=== PATIENT | male | born 1955 | race Caucasian/White ===

== ENCOUNTER 2019-08-29 15:29 | Emergency (ER) | payer MEDICARE, SELFPAY ==
--- NOTE | ~2019-08-29 | XR_ITS ---
EXAMINATION: XR knee LT 3V DATE: 08/29/2019 16:30 INDICATION: Left knee pain TECHNIQUE: Three views of the left knee were obtained. COMPARISON: None. FINDINGS: Alignment is normal. No fracture or osteochondral lesion. There is mild tricompartmental os teoarthritis characterized by tiny marginal osteophytes. No joint effusion/synovitis. Soft tissues a re unremarkable. IMPRESSION: 1. No acute osseous abnormality. Reviewed, dictated and finalized at location A. [facility]
[2019-08-29 15:31] VITALS: BP 140/86; PULSE 87; RESP 16; TEMP 36.8; O2SAT 96
--- NOTE | 2019-08-29 17:25 | ED.LOWEXIN ---
HPI - Extremity Injury (Lower) General Chief Complaint: Extremity Injury, Lower Stated Complaint: left leg injury Time Seen by Provider: 08/29/19 15:36 Source: patient Mode of arrival: ambulatory Limitations: no limitations History of Present Illness HPI Narrative: Patient is a 64-year-old male who presents with left knee pain noting that his knee felt a pop today and with resultant pain at the patellar region worse with weightbearing and activity notes that he also a week ago and injured the leg patient presents with crutches noting aching pain has an outside orthopedist has not seen them has not taken anything for his symptoms and is otherwise resting comfortably in the room in no distress upon arrival Related Data Home Medications Medication Instructions Recorded Confirmed fluticasone propionate 50 2 spray NASAL DAILY 07/29/19 mcg/actuation nasal spray,suspension omeprazole 40 mg capsule,delayed 40 mg PO DAILY 07/29/19 release tamsulosin 0.4 mg capsule 0.4 mg PO DAILY 07/29/19 Allergies Allergy/AdvReac Type Severity Reaction Status Date / Time lisinopril Allergy Unknown cough Verified 08/29/19 16:06 Penicillins Allergy Unknown unkown Verified 08/29/19 16:06 Review of Systems Review of Systems: Narrative: CONSTITUTIONAL: Denies fever, chills, or sweats. SKIN: Positive for bruising and swelling MUSCULOSKELETAL: Positive for left knee pain NEUROLOGIC: Denies numbness, tingling PMFSH Surgical History Surgical History (Updated 08/29/19 @ 17:27 by Buck Mattson PA-C) History of orthopedic surgery Social History Social History Smoking status: Never smoker Alcohol intake: never Gender identity (if verbalized by the patient): Male Exam Narrative: Exam Narrative: GENERAL: Well-appearing, well-nourished, and in no acute distress. HEAD: Normocephalic, atraumatic. EYES: PERRLA and EOMI. ENT: Nares clear, no rhinorrhea or epistaxis. Mucous membranes moist. EXTREMITIES: Normal range of motion. No edema. No deformity or tenderness of the knee SKIN: Warm, dry, no rash. NEURO: No focal deficits. Alert and oriented x3. Neurovascularly intact. Capillary refill less than 2 seconds PSYCH: Normal mood and affect. Course Course Emergency Course: Patient in the room in no distress aware of case findings treatment plan and diagnosis agreeing to follow-up as directed Vital Signs Vital signs: Vital Signs Temperature 98.2 F 08/29/19 15:31 Pulse Rate 87 08/29/19 15:31 Respiratory Rate 16 08/29/19 15:31 Blood Pressure 140/86 08/29/19 15:31 Pulse Oximetry 96 08/29/19 15:31 Temperature 98.2 F 08/29/19 15:31 Pulse Rate 87 08/29/19 15:31 Respiratory Rate 16 08/29/19 15:31 Blood Pressure 140/86 08/29/19 15:31 Pulse Oximetry 96 08/29/19 15:31 MDM - Extremity Injury (Lower) MDM Narrative Medical decision making narrative: Patients injury or pain is consistent with musculoskeletal etiology. No signs of neurological or vascular compromise on exam. Compartments and tisues are soft without signs of compartment syndrome. Pain is felt appropriate for further evaluation on an outpatient basis. Imaging Data Radiologist's impression: ITS Impressions Knee X-Ray 08/29/19 16:38 IMPRESSION: 1. No acute osseous abnormality. Discharge Plan Discharge Clinical Impression: Acute pain of left knee Patient Disposition: Home, Self-Care Condition: Stable Instructions: Antibiotic Form, Arthralgia (ED) Additional Instructions: Wear brace and use crutches. No weight on the affected leg until able to bear weight without pain. Ice and elevate extremity. Pain medication as needed and directed. Follow up with your doctor for further care in the next 7 days. Return if symptoms worsen or concerns. Prescriptions: No Action omeprazole 40 mg capsule,delayed release(DR/EC) 40 mg PO DAILY RF: 0 t
== END 2019-08-29 17:49 | disposition home or self-care (01) ==
PROVIDERS: Emergency Provider Emergency Medicine; PCP Family Medicine
DX: M25.562 Pain in left knee (principal)
CPT/HCPCS: 73562; 99283

== ENCOUNTER 2020-12-12 11:40 | Outpatient (CLI) | payer MEDICARE, SELFPAY ==
--- NOTE | ~2020-12-12 | XR_ITS ---
XR chest 2V DATE: 12/12/2020 12:05 INDICATION: Cough TECHNIQUE: PA and lateral views COMPARISON: 09/28/2018 2 view chest FINDINGS: Normal heart size. Aortic calcification. No hilar or mediastinal enlargement. No pulmonary infiltrate or consolidation, pleural effusion or pulmonary vascular congestion or pneumo thorax. Diffuse osteopenia. Mild dextroscoliosis and degenerative spurring of the thoracic spine. IMPRESSION: No active cardiopulmonary disease Aortic atherosclerosis Reviewed, dictated and finalized at location A.
== END 2020-12-12 11:41 | disposition home or self-care (01) ==
LOC: ANHIMG 11:48
PROVIDERS: PCP Family Medicine; Visit Provider Family Medicine
DX: R05 Cough (principal); I70.0 Atherosclerosis of aorta; M85.88 Other specified disorders of bone density and structure, other site
CPT/HCPCS: 71046

== ENCOUNTER → 2020-12-23 01:15 | Outpatient (CLI) | payer MEDICARE, SELFPAY ==
[2020-12-23 17:56] LABS: SARS-CoV-2 RNA PCR Negative
== END ==
PROVIDERS: PCP Family Medicine; Visit Provider Internal Medicine Gastroenterology
DX: Z01.812 Encounter for preprocedural laboratory examination (principal); Z20.822 Contact with and (suspected) exposure to COVID-19
CPT/HCPCS: C9803; U0003; U0005

== ENCOUNTER 2020-12-26 02:32 | Day surgery (SDC) | payer MEDICARE, SELFPAY ==
[2020-12-19 14:00] VITALS: BMI 32.1
--- NOTE | 2020-12-26 07:59 | P.PNAN_ITS ---
Anes - Initial Pre Proc Eval Procedure: Operation Date: 12/26/20 11:15 Proposed Procedures p Esophagogastroduodenoscopy - Jesus Jeter MD Date/Time: 12/26/20 07:59 Surgeon: Jesus Jeter MD Pre Op Diagnosis: dysphagia Patient Data Age: 65 Gender: M Height: 1.7 m Weight: 93 kg Allergies Allergy/AdvReac Type Severity Reaction Status Date / Time lisinopril Allergy Unknown cough Verified 12/26/20 09:49 Penicillins Allergy Unknown unkown Verified 12/26/20 09:49 Home Medications Medication Instructions Recorded Confirmed Type omega-3 fatty acids 1,000 mg 1,000 mg PO DAILY 02/18/20 12/26/20 History capsule ascorbic acid (vitamin C) 500 mg 1,000 mg PO DAILY cap 08/02/20 12/26/20 History capsule vitamin B complex 1 tablet PO DAILY 08/02/20 12/26/20 History omeprazole 40 mg capsule,delayed 40 mg PO DAILY #90 cap 08/07/20 12/26/20 Rx release atorvastatin 10 mg tablet See Rx Instructions .ROUTE 08/15/20 12/26/20 Rx .COMPLEX #90 tablet meloxicam 15 mg tablet 15 mg PO DAILY #90 tablet 08/16/20 12/26/20 Rx fluticasone propionate 50 See Rx Instructions .ROUTE 10/10/20 12/26/20 Rx mcg/actuation nasal .COMPLEX #16 ml spray,suspension nystatin-triamcinolone 100,000 1 applic TOPICAL TID PRN #60 g 11/08/20 12/26/20 Rx unit/g-0.1 % topical cream tamsulosin 0.4 mg capsule 0.4 mg PO DAILY 11/30/20 12/26/20 History Patient hx anesthesia problems: none Family hx anesthesia problems: none PMFSH Past Medical History Medical History (Updated 12/26/20 @ 10:50 by Jesus Jeter MD) Arthritis BMI 33.0-33.9,adult Cervical radiculopathy Esophageal stricture Essential (primary) hypertension Mixed hyperlipidemia Obesity (BMI 30-39.9) Osteoarthritis of both knees Surgical History Surgical History History of orthopedic surgery right knee arthroscopy Family History Family History Father Hypertension, Onset Age: 76 Family history of throat cancer, Onset Age: 76 Mother Family history of lung cancer, Onset Age: 62 Family history of malignant neoplasm of breast in first degree relative, Onset Age: 62 Social History Social History Smoking status: Never smoker Alcohol intake: never Substance use: never Substance use type: does not use Living arrangements: with family Gender identity (if verbalized by the patient): Male Spiritual care concerns: No Anes - Eval Final PreProcedure Day of Procedure 12/26/20 07:59 Patient weight: obese Heart: regular rate and rhythm Lungs: clear to auscultation and normal air movement Airway: Mallampati scale class II Neurological: alert and oriented Last oral intake: >/= 8 hours ASA classification: III Emergent: no Anesthetic plan: proceed Anesthesia type and monitoring: general GIVS Informed Consent: The patient's anesthetic plan and its attendant risks and benefits were discussed with the patient/family/POA. Questions were solicited and answers provided to the satisfaction of the patient/family/POA.
[2020-12-26 09:51] VITALS: BP 113/91; PULSE 79; RESP 18; TEMP 36.6; O2SAT 95; BMI 32.2
[2020-12-26] MEDS: LACTATED RINGERS 1,000 ML 150 ML IV CONT (10:12)
--- NOTE | 2020-12-26 10:48 | WPDGICN ---
Assessment and Plan Assessment and plan (1) Dysphagia: Code(s): R13.10 - Dysphagia, unspecified Status: Acute Assessment and Plan: Patient with difficulty swallowing over the last couple years suspicious for recurrent esophageal stricturing. Plan is for EGD to assess more thoroughly. Dilatation may be required. (2) Esophageal stricture: Code(s): K22.2 - Esophageal obstruction Status: Acute Assessment and Plan: Patient has a prior history of esophageal stricture on the basis of acid reflux. Patient continues to take omeprazole 40 mg p.o. daily for acid reflux. This will be assessed at time of endoscopy. GI Consult Note Consult date/time: 12/26/20 10:48 HPI: Jose Martin Valderrama is a 65 year old male Presents for EGD. Patient has had difficulty swallowing for many years. He notes of food hang in the mid substernal portion of the chest. He states that it occurs more often with solid foods than liquids. Occasionally will notice substernal discomfort. He has been maintained on therapy for acid reflux for some time period current medications include omeprazole 40 mg p.o. daily. Patient denies any bleeding. He denies any weight loss. Family history is noncontributory. Because of ongoing difficulty swallowing he presents today for EGD. Review of Systems Review of Systems: All systems reviewed & are unremarkable except as noted in HPI and below PMFSH Past Medical History Medical History (Updated 12/26/20 @ 10:50 by Jesus Jeter MD) Arthritis BMI 33.0-33.9,adult Cervical radiculopathy Esophageal stricture Essential (primary) hypertension Mixed hyperlipidemia Obesity (BMI 30-39.9) Osteoarthritis of both knees Surgical History Surgical History History of orthopedic surgery right knee arthroscopy Family History Family History Father Hypertension, Onset Age: 76 Family history of throat cancer, Onset Age: 76 Mother Family history of lung cancer, Onset Age: 62 Family history of malignant neoplasm of breast in first degree relative, Onset Age: 62 Social History Social History Smoking status: Never smoker Alcohol intake: never Substance use: never Substance use type: does not use Living arrangements: with family Gender identity (if verbalized by the patient): Male Spiritual care concerns: No Meds Home Medications and Allergies Home Medications Medication Instructions Recorded Confirmed Type omega-3 fatty acids 1,000 mg 1,000 mg PO DAILY 02/18/20 12/26/20 History capsule ascorbic acid (vitamin C) 500 mg 1,000 mg PO DAILY cap 08/02/20 12/26/20 History capsule vitamin B complex 1 tablet PO DAILY 08/02/20 12/26/20 History omeprazole 40 mg capsule,delayed 40 mg PO DAILY #90 cap 08/07/20 12/26/20 Rx release atorvastatin 10 mg tablet See Rx Instructions .ROUTE 08/15/20 12/26/20 Rx .COMPLEX #90 tablet meloxicam 15 mg tablet 15 mg PO DAILY #90 tablet 08/16/20 12/26/20 Rx fluticasone propionate 50 See Rx Instructions .ROUTE 10/10/20 12/26/20 Rx mcg/actuation nasal .COMPLEX #16 ml spray,suspension nystatin-triamcinolone 100,000 1 applic TOPICAL TID PRN #60 g 11/08/20 12/26/20 Rx unit/g-0.1 % topical cream tamsulosin 0.4 mg capsule 0.4 mg PO DAILY 11/30/20 12/26/20 History Allergies Allergy/AdvReac Type Severity Reaction Status Date / Time lisinopril Allergy Unknown cough Verified 12/26/20 09:49 Penicillins Allergy Unknown unkown Verified 12/26/20 09:49 Vital Signs Vital Signs - 24 hr 12/26/20 09:51 Temperature 97.9 F Pulse Rate 79 Respiratory Rate 18 Blood Pressure 113/91 H Pulse Oximetry 95 Exam Narrative: Exam Narrative: Physical exam reveals patient be alert. Vital signs stable. HEENT exam is unremarkable.
[2020-12-26 11:33] VITALS: BP 139/86; PULSE 68; RESP 18; O2SAT 96
[2020-12-26 11:43] VITALS: BP 129/84; PULSE 66; RESP 20; O2SAT 97
[2020-12-26 11:53] VITALS: BP 136/88; PULSE 66; RESP 20; O2SAT 98
== END 2020-12-26 11:58 | disposition home or self-care (01) ==
PROVIDERS: PCP Family Medicine; Visit Provider Internal Medicine Gastroenterology
PROC: 0DJ08ZZ Inspection of Upper Intestinal Tract, Via Natural or Artificial Opening Endoscopic (ICD-10-PCS; CPT 43235; principal; 2020-12-26 11:15)
DX: K22.2 Esophageal obstruction (principal); I10 Essential (primary) hypertension; E78.2 Mixed hyperlipidemia; M17.0 Bilateral primary osteoarthritis of knee; M54.12 Radiculopathy, cervical region; E66.9 Obesity, unspecified; Z68.32 Body mass index [BMI] 32.0-32.9, adult
CPT/HCPCS: 43450; C9803; J2704; J7120; U0003; U0005

== ENCOUNTER 2021-12-07 12:14 | Outpatient (CLI) | payer MEDICARE, SELFPAY ==
--- NOTE | ~2021-12-07 | XR_ITS ---
EXAMINATION: XR elbow LT min 3V DATE: 12/07/2021 12:43 INDICATION: Left elbow pain TECHNIQUE: Anteroposterior, two oblique and lateral views of the left elbow were obtained. COMPARISON: None. FINDINGS: Alignment is normal. No fracture or joint effusion. Mild osteoarthritis at the left elbow with mild n onuniform joint space narrowing at the radiocapitellar articulation. Enthesophytes and/or enthesopath ic ossicles at the medial and lateral humeral epicondyles and at the olecranon. Soft tissues are unre markable. IMPRESSION: 1. 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 Reviewed, dictated and finalized at location B.
--- NOTE | ~2021-12-07 | XR_ITS ---
XR_CERV2-3V_CR DATE: 12/07/2021 12:43 INDICATION: Neck pain TECHNIQUE: Standing AP, lateral, open-mouth and swimmer views COMPARISON: None FINDINGS: C1 and C2 are normally aligned and the odontoid process is intact. There is moderate degenerative disc disease and prominent posterior spurring and minimal anterolisthe sis at C4-5. There is mild anterolisthesis and mild degenerative disc disease at C5-6. There is severe degenerative disc disease at C6-7. There is uncovertebral joint spurring at C3-4, C4-5, C5-C6 and C6-7, most prominent on the left at C3 -4 and C4-5. No fracture or dislocation or locked facet or prevertebral soft tissue swelling. There is mild levoscoliosis of the upper thoracic spine. IMPRESSION: Cervical spondylosis Reviewed, dictated and finalized at Location A. Reviewed, dictated and finalized at location A. IMPRESSION: Cervical spondylosis
== END 2021-12-07 12:15 ==
PROVIDERS: PCP Physician Assistant; Visit Provider Physician Assistant
DX: M54.2 Cervicalgia (principal); M25.522 Pain in left elbow; M47.812 Spondylosis without myelopathy or radiculopathy, cervical region; M19.022 Primary osteoarthritis, left elbow
CPT/HCPCS: 72040; 73080

== ENCOUNTER 2022-03-05 07:55 | Outpatient (CLI) | payer MEDICARE, SELFPAY ==
[2022-03-05 08:12] LABS: Basophils Absolute Auto 0.06 K/mm3 (0.00-0.10); Basophils Percent Auto 0.8 % (0.0-1.0); Eosinophils Absolute Auto 0.31 K/mm3 (0.02-0.50); Eosinophils Percent Auto 4.3 % (1.0-6.0); Hematocrit 42.3 % (37.0-46.0); Hemoglobin 14.4 g/dL (12.4-15.3); Immature Granulocyte Absolute 0.02 K/mm3 (0.00-0.00); Immature Granulocyte Percent A 0.3 % (0.0-0.0); Lymphocytes Absolute Auto 1.66 K/mm3 (1.10-4.50); Lymphocytes Percent Auto 23.1 % (18.0-42.0); Mean Corpuscular Hemoglobin 29.4 pg (27.0-31.0); Mean Corpuscular Volume 86.5 fL (78.0-102.0); Monocytes Absolute Auto 0.73 K/mm3 (0.10-0.90); Monocytes Percent Auto 10.2 % (2.0-11.0); Neutrophils Absolute Auto 4.4 K/mm3 (1.7-7.2); Neutrophils Percent Auto 61.3 % (50.0-70.0); Platelet Count Result 206 K/mm3 (150-420); Red Blood Count 4.89 M/mm3 (4.70-6.10); Red Cell Distribution Width 12.8 % (11.6-14.4); White Blood Count 7.2 K/mm3 (4.8-10.8)
[2022-03-05 08:41] LABS: Alanine Aminotransferase 29 U/L (16-63); Albumin Level 4.1 g/dL (3.4-5.0); Alkaline Phosphatase 86 U/L (46-116); Anion Gap 6 mmol/L (8-16); Aspartate Amino Transferase 24 U/L (15-37); Bilirubin,Total 0.3 mg/dL (0.00-1.00); Blood Urea Nitrogen 28 mg/dL (7-18); Calcium 9.2 mg/dL (8.5-10.1); Carbon Dioxide 29 mmol/L (21-32); Chloride 102 mmol/L (98-108); Cholesterol 127 mg/dL (0-200); Estimated Glomerular Filt Rate > 60; Glucose 101 mg/dL (70-99); HDL Direct 30 mg/dL (40-60); LDL Cholesterol Calculated 64 mg/dL (<130); Osmolality Calculated 289 mOsm/kg (285-295); Potassium 4.2 mmol/L (3.5-5.1); Prostate Specific Antigen 0.8 ng/mL (< OR = 4.0); Sodium 137 mmol/L (136-145); Thyroid Stimulating Hormone 1.65 uIU/mL (0.36-3.74); Total Protein 7.7 g/dL (6.4-8.2); Triglycerides 167 mg/dL (0-150)
== END 2022-03-05 07:56 | disposition home or self-care (01) ==
LOC: CHSLAB 07:59
PROVIDERS: PCP Family Medicine; Visit Provider Family Medicine
DX: E66.9 Obesity, unspecified (principal); E78.2 Mixed hyperlipidemia; E78.5 Hyperlipidemia, unspecified; I10 Essential (primary) hypertension; Z12.5 Encounter for screening for malignant neoplasm of prostate
CPT/HCPCS: 36415; 80053; 80061; 84153; 84443; 85025; 85027; G0103

== ENCOUNTER 2022-03-29 10:27 | Emergency (ER) | payer MEDICARE, SELFPAY ==
--- NOTE | ~2022-03-29 | XR_ITS ---
EXAMINATION: XR chest 2V DATE: 03/29/2022 11:26 INDICATION: Intermittent left lateral rib pain and chills TECHNIQUE: PA and lateral views of the chest were obtained. COMPARISON: Chest radiograph dated 12/12/2020 FINDINGS: The lungs remain clear with no focal airspace opacities, pulmonary edema, pleural effusion or pneumot horax. The cardiomediastinal silhouette is normal. Moderate thoracic spondylosis. IMPRESSION: 1. No acute cardiopulmonary disease. Reviewed, dictated and finalized at location A.
[2022-03-29 10:41] VITALS: BP 158/88; PULSE 73; RESP 20; TEMP 36.4; O2SAT 93
--- NOTE | 2022-03-29 10:47 | ED.GENADULT ---
HPI - General Adult General Chief complaint: Unspecified Stated complaint: pain in left side/chills Time Seen by Provider: 03/29/22 10:46 Source: patient and RN notes reviewed Mode of arrival: ambulatory Limitations: no limitations History of Present Illness HPI narrative: Patient states he has had this left rib pain for couple of years on and off He has been to his doctor about this but nothing ever found. This morning when he woke up at 5:00 a.m. he had pain 7/10 in his left rib area and the mid axillary line. He said he felt some chills and that made him concerned as this was something new so he came in to be seen. He denies any chest pain, shortness of breath, actual fever, nausea vomiting. Onset (ago): hour(s) (5) Location: chest (left ribs axiallary line) Radiation: non-radiation Severity: moderate Quality: stabbing and dull Pain Consistency: intermittent and now resolved Associated symptoms: fever/chills Related Data Home Medications Medication Instructions Recorded Confirmed omega-3 fatty acids 1,000 mg 1,000 mg PO DAILY 02/18/20 03/20/22 capsule (Fish Oil Concentrate) ascorbic acid (vitamin C) 500 mg 1,000 mg PO DAILY 08/02/20 03/20/22 capsule vitamin B complex 1 tablet PO DAILY 08/02/20 03/20/22 cholecalciferol (vitamin D3) 50 50 mcg PO DAILY 03/20/22 03/20/22 mcg (2,000 unit) capsule multivitamin-ferrous 1 tablet PO DAILY 03/20/22 03/20/22 fumarate-folic acid 18 mg-400 mcg tablet ([facility]) atorvastatin 10 mg tablet 10 mg PO DAILY 03/29/22 03/29/22 meloxicam 15 mg tablet 15 mg PO DAILY 03/29/22 03/29/22 omeprazole 40 mg capsule,delayed 40 mg PO DAILY 03/29/22 03/29/22 release tamsulosin 0.4 mg capsule 0.4 mg PO DAILY 03/29/22 03/29/22 Allergies Allergy/AdvReac Type Severity Reaction Status Date / Time lisinopril Allergy Unknown cough Verified 03/29/22 10:49 Penicillins Allergy Unknown unkown Verified 03/29/22 10:49 Review of Systems Review of Systems: All systems reviewed & are unremarkable except as noted in HPI and below PMFSH Past Medical History Medical History Arthritis BMI 33.0-33.9,adult BPH (benign prostatic hyperplasia) Cervical radiculopathy Diverticulitis Esophageal stricture Essential (primary) hypertension Gastro-esophageal reflux disease without esophagitis Mixed hyperlipidemia Obesity (BMI 30-39.9) Osteoarthritis of both knees Splenic mass Surgical History Surgical History History of orthopedic surgery right knee arthroscopy Family History Family History Father Hypertension, Onset Age: 76 Family history of throat cancer, Onset Age: 76 Mother Family history of lung cancer, Onset Age: 62 Family history of malignant neoplasm of breast in first degree relative, Onset Age: 62 Social History Social History Smoking status: Never smoker Alcohol intake: never Substance use: never Substance use type: does not use Gender identity (if verbalized by the patient): Male Spiritual care concerns: No Exam Const: General: cooperative, healthy appearing, comfortable, no acute distress, well developed, alert and awake Orientation/consciousness: patient oriented x3 Limitations: no limitations HENMT: Head: normal to inspection Ears: hearing grossly normal bilaterally and external ears normal General nose exam: Normal external nose present Eyes: General: appearance normal, both eyes and all related structures Eyelids: eyelids normal Cornea: corneas normal Pupils: Equal, round and reactive pupils present EOM: EOMs intact bilaterally Neck: Neck: normal visual inspection, full ROM and supple Chest: Chest palpation & inspection: tenderness rib left mid-axillary line involving the 8th rib, involving the 9th rib and involving t
[2022-03-29 11:05] LABS: Basophils Absolute Auto 0.06 K/mm3 (0.00-0.10); Basophils Percent Auto 0.6 % (0.0-1.0); Eosinophils Absolute Auto 0.32 K/mm3 (0.02-0.50); Eosinophils Percent Auto 3.1 % (1.0-6.0); Hematocrit 43.3 % (37.0-46.0); Immature Granulocyte Absolute 0.04 K/mm3 (0.00-0.00); Immature Granulocyte Percent A 0.4 % (0.0-0.0); Lymphocytes Absolute Auto 2.17 K/mm3 (1.10-4.50); Lymphocytes Percent Auto 20.8 % (18.0-42.0); Mean Corpuscular HGB Conc 34.6 g/dL (32.0-36.0); Mean Corpuscular Hemoglobin 29.5 pg (27.0-31.0); Mean Corpuscular Volume 85.2 fL (78.0-102.0); Monocytes Absolute Auto 0.94 K/mm3 (0.10-0.90); Neutrophils Absolute Auto 6.9 K/mm3 (1.7-7.2); Neutrophils Percent Auto 66.1 % (50.0-70.0); Platelet Count Result 227 K/mm3 (150-420); Red Blood Count 5.08 M/mm3 (4.70-6.10); Red Cell Distribution Width 12.6 % (11.6-14.4); White Blood Count 10.4 K/mm3 (4.8-10.8)
[2022-03-29 11:21] LABS: Alanine Aminotransferase 43 U/L (16-63); Albumin Level 4.2 g/dL (3.4-5.0); Alkaline Phosphatase 85 U/L (46-116); Amylase 60 U/L (25-115); Anion Gap 9 mmol/L (8-16); Aspartate Amino Transferase 26 U/L (15-37); Bilirubin,Total 0.6 mg/dL (0.00-1.00); Blood Urea Nitrogen 25 mg/dL (7-18); CRP < 0.2 mg/dL (0.0-0.9); Calcium 9.2 mg/dL (8.5-10.1); Carbon Dioxide 25 mmol/L (21-32); Chloride 102 mmol/L (98-108); Estimated CRCL calculation 65 ml/min; Estimated Glomerular Filt Rate > 60; Glucose 90 mg/dL (70-99); Lipase 106 U/L (73-393); Magnesium 2.1 mg/dL (1.8-2.4); Osmolality Calculated 286 mOsm/kg (285-295); Potassium 3.8 mmol/L (3.5-5.1); Sodium 136 mmol/L (136-145); Total Protein 7.9 g/dL (6.4-8.2)
[2022-03-29 11:52] VITALS: BP 148/66; PULSE 66; RESP 20; TEMP 36.6; O2SAT 94
== END 2022-03-29 11:57 | disposition home or self-care (01) ==
PROVIDERS: Emergency Provider Emergency Medicine; PCP Family Medicine
DX: R07.81 Pleurodynia (principal); K21.9 Gastro-esophageal reflux disease without esophagitis; E78.2 Mixed hyperlipidemia
CPT/HCPCS: 36415; 71046; 80053; 82150; 83690; 83735; 85025; 86140; 99283

== ENCOUNTER → 2022-05-08 13:40 | Outpatient (CLI) | payer MEDICARE, SELFPAY ==
--- NOTE | ~2022-05-08 | XR_ITS ---
XR knee LT 3V 05/08/2022 13:53 Indication: Left knee pain Procedure: 3 views left knee Comparison: 08/29/2019 Findings: There is anatomic alignment. No fracture, subluxation or dislocation. There is mild osteoar thritis. No joint effusion. No foreign bodies. Impression: 1: Mild osteoarthritis of the left knee. Reviewed, dictated and finalized at location B. Impression: 1: Mild osteoarthritis of the left knee.
== END ==
PROVIDERS: PCP Nurse Practitioner; Visit Provider Nurse Practitioner
DX: M25.562 Pain in left knee (principal); M17.12 Unilateral primary osteoarthritis, left knee
CPT/HCPCS: 73562

== ENCOUNTER 2022-07-18 08:11 | Outpatient (CLI) | payer MEDICARE, SELFPAY ==
[2022-07-18 09:07] LABS: Alanine Aminotransferase 51 U/L (16-63); Albumin Level 4.1 g/dL (3.4-5.0); Alkaline Phosphatase 88 U/L (46-116); Anion Gap 7 mmol/L (8-16); Aspartate Amino Transferase 23 U/L (15-37); Bilirubin,Total 0.4 mg/dL (0.00-1.00); Blood Urea Nitrogen 24 mg/dL (7-18); Carbon Dioxide 30 mmol/L (21-32); Chloride 101 mmol/L (98-108); Cholesterol 125 mg/dL (0-200); Estimated Glomerular Filt Rate > 60; Glucose 93 mg/dL (70-99); HDL Direct 33 mg/dL (40-60); LDL Cholesterol Calculated 72 mg/dL (<130); Osmolality Calculated 290 mOsm/kg (285-295); Potassium 4.4 mmol/L (3.5-5.1); Sodium 138 mmol/L (136-145); Thyroid Stimulating Hormone 1.42 uIU/mL (0.36-3.74); Total Protein 7.6 g/dL (6.4-8.2); Triglycerides 102 mg/dL (0-150)
[2022-07-22 19:54] LABS: Vitamin D 25 Hydroxy 43 ng/mL (30-100)
== END 2022-07-18 08:12 | disposition home or self-care (01) ==
LOC: CHSLAB 08:14
PROVIDERS: PCP Family Medicine; Visit Provider Nurse Practitioner
DX: E55.9 Vitamin D deficiency, unspecified (principal); G47.00 Insomnia, unspecified; E78.2 Mixed hyperlipidemia
CPT/HCPCS: 36415; 80053; 80061; 82306; 84443

== ENCOUNTER 2022-10-31 02:22 | Emergency (ER) | payer MEDICARE, SELFPAY ==
[2022-10-31 02:24] VITALS: BP 171/94; PULSE 70; RESP 18; TEMP 36.4; O2SAT 94
--- NOTE | 2022-10-31 02:32 | ED.EYEPROB ---
HPI - Eye Problem General Chief complaint: Eye Problems Stated complaint: Eye Source: patient Mode of arrival: ambulatory Limitations: no limitations History of Present Illness HPI Narrative: 67-year-old male a history of hypertension, dyslipidemia, GERD, osteoarthritis, cervical radiculopathy, esophageal stricture, diverticulosis presents to the ER with a 1 hour history of -- right eye pain with irritation and watering. He was cleaning out his locker and felt that something could have fallen into his eye. Vision is 20 x 30 in both eyes. No other complaints. MD chief complaint: eye pain, eye redness and foreign body Onset (ago): hour(s) ( Symptoms started 1 hour ago) Onset description: sudden Duration: constant Location: right eye Eye Symptoms: burning, redness, pain and foreign body sensation Place: home Mechanism: none Severity: mild If Pain, Quality: aching Treatments Prior to Arrival: none Related Data Home Medications Medication Instructions Recorded Confirmed omega-3 fatty acids 1,000 mg 1,000 mg PO DAILY 02/18/20 10/31/22 capsule (Fish Oil Concentrate) ascorbic acid (vitamin C) 500 mg 1,000 mg PO DAILY 08/02/20 10/31/22 capsule vitamin B complex 1 tablet PO DAILY 08/02/20 10/31/22 cholecalciferol (vitamin D3) 50 50 mcg PO DAILY 03/20/22 10/31/22 mcg (2,000 unit) capsule multivitamin-ferrous 1 tablet PO DAILY 03/20/22 10/31/22 fumarate-folic acid 18 mg-400 mcg tablet (Sentry) Allergies Allergy/AdvReac Type Severity Reaction Status Date / Time lisinopril Allergy Unknown cough Verified 10/31/22 02:30 Penicillins Allergy Unknown unkown Verified 10/31/22 02:30 Review of Systems Review of Systems: All systems reviewed & are unremarkable except as noted in HPI and below Constitutional: Constitutional: Reports as per HPI and Reports no additional constitutional complaints Eyes: Eyes: Reports as per HPI and Reports no additional eye complaints [facility] Past Medical History Medical History Arthritis BMI 33.0-33.9,adult BPH (benign prostatic hyperplasia) Cervical radiculopathy Diverticulitis Esophageal stricture Essential (primary) hypertension Gastro-esophageal reflux disease without esophagitis Mixed hyperlipidemia Obesity (BMI 30-39.9) Osteoarthritis of both knees Splenic mass Surgical History Surgical History History of orthopedic surgery right knee arthroscopy Family History Family History Father Hypertension, Onset Age: 76 Family history of throat cancer, Onset Age: 76 Mother Family history of lung cancer, Onset Age: 62 Family history of malignant neoplasm of breast in first degree relative, Onset Age: 62 Social History Social History Smoking status: Never smoker Alcohol intake: never Substance use: never Substance use type: does not use Lack of Transportation: No Lack of Food: Never True Current Housing: I Have Housing Concerned About Future Housing: No Difficulty Paying Gas/Electric Bills: No Difficulty Paying for Meds: No Currently Unemployed: No Education: High School Diploma/GED Difficulty w/ Childcare or Family Care: No Living arrangements: with family Occupation/Education: retired Gender identity (if verbalized by the patient): Male Spiritual care concerns: No Exam Const: General: no acute distress Orientation/consciousness: patient oriented x3 Limitations: no limitations HENMT: Head: normal to inspection Ears: external ears normal Face/Nose/Sinus: Normal external nose present Face and sinus: normal facial exam Mouth: Yes Normal oral and palatal mucosa present Throat: posterior oropharynx normal Eyes: Conjunctivae: conjunctivae normal ( conjunctival erythema on the right side
[2022-10-31 02:54] VITALS: BP 164/90; PULSE 71; RESP 16; O2SAT 95
== END 2022-10-31 02:56 | disposition home or self-care (01) ==
PROVIDERS: Emergency Provider Internal Medicine Critical Care Medicine; PCP Family Medicine
DX: H10.9 Unspecified conjunctivitis (principal); I10 Essential (primary) hypertension; E78.2 Mixed hyperlipidemia
CPT/HCPCS: 99283

== ENCOUNTER 2022-12-18 08:30 | Outpatient (CLI) | payer MEDICARE, SELFPAY ==
[2022-12-18 08:43] LABS: Hematocrit 42.3 % (37.0-46.0); Hemoglobin 14.6 g/dL (12.4-15.3); Mean Corpuscular HGB Conc 34.5 g/dL (32.0-36.0); Mean Corpuscular Hemoglobin 30.1 pg (27.0-31.0); Mean Corpuscular Volume 87.2 fL (78.0-102.0); Mean Platelet Volume 10.1 fl (8.7-11.0); Platelet Count Result 188 K/mm3 (150-420); Red Blood Count 4.85 M/mm3 (4.70-6.10); Red Cell Distribution Width 12.2 % (11.6-14.4); White Blood Count 9.1 K/mm3 (4.8-10.8)
[2022-12-18 09:25] LABS: Alanine Aminotransferase 36 U/L (16-63); Albumin Level 3.9 g/dL (3.4-5.0); Alkaline Phosphatase 112 U/L (46-116); Anion Gap 6 mmol/L (8-16); Aspartate Amino Transferase 25 U/L (15-37); Bilirubin,Total 0.3 mg/dL (0.00-1.00); Blood Urea Nitrogen 33 mg/dL (7-18); Calcium 9.1 mg/dL (8.5-10.1); Carbon Dioxide 30 mmol/L (21-32); Chloride 104 mmol/L (98-108); Cholesterol 119 mg/dL (0-200); Estimated Glomerular Filt Rate > 60; Glucose 97 mg/dL (70-99); HDL Direct 35 mg/dL (40-60); LDL Cholesterol Calculated 61 mg/dL (<130); Osmolality Calculated 297 mOsm/kg (285-295); Potassium 4.1 mmol/L (3.5-5.1); Sodium 140 mmol/L (136-145); Thyroid Stimulating Hormone 1.52 uIU/mL (0.36-3.74); Total Protein 7.2 g/dL (6.4-8.2); Triglycerides 114 mg/dL (0-150)
[2022-12-22 20:52] LABS: Vitamin D 25 Hydroxy 48 ng/mL (30-100)
== END 2022-12-18 08:31 | disposition home or self-care (01) ==
LOC: CHSLAB 08:32
PROVIDERS: PCP Nurse Practitioner; Visit Provider Nurse Practitioner
DX: G47.00 Insomnia, unspecified (principal); E78.5 Hyperlipidemia, unspecified; I10 Essential (primary) hypertension; E55.9 Vitamin D deficiency, unspecified
CPT/HCPCS: 36415; 80053; 80061; 82306; 84443; 85027

== ENCOUNTER 2023-01-04 15:00 | Emergency (ER) | payer MEDICARE, SELFPAY ==
[2023-01-04 15:07] VITALS: BP 119/68; PULSE 72; RESP 16; TEMP 36.2; O2SAT 98
--- NOTE | 2023-01-04 15:36 | ED.GENADULT ---
HPI - General Adult General Chief complaint: Skin/Abscess/Foreign Body Stated complaint: Rash Source: patient Mode of arrival: ambulatory Limitations: no limitations History of Present Illness HPI narrative: Patient presents for evaluation of pruritic rash to extremities x4 and torso. He states symptoms started earlier this week after working outdoors. He thinks he may have been exposed to poison ashley. No new lotions, soaps, detergents or topical products. No history of exposure to poison ashley in the past to his knowledge. He attempted to apply topical Benadryl without much improvement thereafter. No difficulty breathing or swallowing. Related Data Home Medications Medication Instructions Recorded Confirmed omega-3 fatty acids 1,000 mg 1,000 mg PO DAILY 02/18/20 01/04/23 capsule (Fish Oil Concentrate) ascorbic acid (vitamin C) 500 mg 1,000 mg PO DAILY 08/02/20 01/04/23 capsule vitamin B complex 1 tablet PO DAILY 08/02/20 01/04/23 cholecalciferol (vitamin D3) 50 50 mcg PO DAILY 03/20/22 01/04/23 mcg (2,000 unit) capsule multivitamin-ferrous 1 tablet PO DAILY 03/20/22 01/04/23 fumarate-folic acid 18 mg-400 mcg tablet (Sentry) Allergies Allergy/AdvReac Type Severity Reaction Status Date / Time lisinopril Allergy Unknown cough Verified 01/04/23 15:11 Penicillins Allergy Unknown unkown Verified 01/04/23 15:11 Review of Systems Review of Systems: CONSTITUTIONAL: Denies fever, chills, or sweats. EYES: Denies visual changes, redness, or discharge. ENT: Denies rhinorrhea, congestion, sore throat, or otalgia. CARDIOVASCULAR: Denies chest pain, palpitations, or edema. RESPIRATORY: Denies cough or dyspnea. GASTROINTESTINAL: Denies abdominal pain, nausea, vomiting, or diarrhea. GENITOURINARY: Denies dysuria or hematuria. SKIN: Reports pruritic rash to extremities x 4 and torso. MUSCULOSKELETAL: Denies back pain, joint pain, or myalgia. NEUROLOGIC: Denies headache, numbness, dizziness, or weakness. PSYCHIATRIC: Denies anxiety or depression. [facility] Past Medical History Medical History Arthritis BMI 33.0-33.9,adult BPH (benign prostatic hyperplasia) Cervical radiculopathy Diverticulitis Esophageal stricture Essential (primary) hypertension Gastro-esophageal reflux disease without esophagitis Mixed hyperlipidemia Obesity (BMI 30-39.9) Osteoarthritis of both knees Splenic mass Surgical History Surgical History History of orthopedic surgery right knee arthroscopy Family History Family History Father Hypertension, Onset Age: 76 Family history of throat cancer, Onset Age: 76 Mother Family history of lung cancer, Onset Age: 62 Family history of malignant neoplasm of breast in first degree relative, Onset Age: 62 Social History Social History Smoking status: Never smoker Alcohol intake: never Substance use: never Substance use type: does not use Lack of Transportation: No Lack of Food: Never True Current Housing: I Have Housing Concerned About Future Housing: No Difficulty Paying Gas/Electric Bills: No Difficulty Paying for Meds: No Currently Unemployed: No Education: High School Diploma/GED Difficulty w/ Childcare or Family Care: No Living arrangements: with family Occupation/Education: retired Gender identity (if verbalized by the patient): Male Spiritual care concerns: No Exam Narrative: GENERAL: Well-appearing, well-nourished, and in no acute distress. HEAD: Normocephalic, atraumatic. EYES: PERRLA and EOMI. ENT: Nares clear, no rhinorrhea or epistaxis. Mucous membranes moist. Oropharynx without tonsillar hypertrophy exudate or other lesions. Bilateral TMs pearly sethi nonbulging NECK: Suppl
== END 2023-01-04 15:40 | disposition home or self-care (01) ==
PROVIDERS: Emergency Provider Nurse Practitioner
DX: L23.7 Allergic contact dermatitis due to plants, except food (principal); N40.0 Benign prostatic hyperplasia without lower urinary tract symptoms; I10 Essential (primary) hypertension; K21.9 Gastro-esophageal reflux disease without esophagitis; E78.2 Mixed hyperlipidemia; M17.0 Bilateral primary osteoarthritis of knee
CPT/HCPCS: 99213; G0463

== ENCOUNTER 2023-05-06 07:55 | Outpatient (CLI) | payer MEDICARE, SELFPAY ==
[2023-05-06 08:56] LABS: Alanine Aminotransferase 36 U/L (16-63); Albumin Level 4.1 g/dL (3.4-5.0); Alkaline Phosphatase 91 U/L (46-116); Anion Gap 11 mmol/L (8-16); Aspartate Amino Transferase 16 U/L (15-37); Bilirubin,Total 0.5 mg/dL (0.00-1.00); Blood Urea Nitrogen 21 mg/dL (7-18); Calcium 9.8 mg/dL (8.5-10.1); Carbon Dioxide 28 mmol/L (21-32); Chloride 104 mmol/L (98-108); Cholesterol 121 mg/dL (0-200); Estimated Glomerular Filt Rate > 60; Glucose 95 mg/dL (70-99); HDL Direct 36 mg/dL (40-60); LDL Cholesterol Calculated 71 mg/dL (<130); Osmolality Calculated 299 mOsm/kg (285-295); Potassium 4.3 mmol/L (3.5-5.1); Sodium 143 mmol/L (136-145); Total Protein 7.2 g/dL (6.4-8.2); Triglycerides 68 mg/dL (0-150)
== END 2023-05-06 07:56 | disposition home or self-care (01) ==
LOC: CHSLAB 07:57
PROVIDERS: PCP Family Medicine; Visit Provider Nurse Practitioner
DX: I10 Essential (primary) hypertension (principal); E78.2 Mixed hyperlipidemia; E16.2 Hypoglycemia, unspecified
CPT/HCPCS: 36415; 80053; 80061

== ENCOUNTER 2023-05-22 09:57 | Outpatient (CLI) | payer MEDICARE, SELFPAY ==
--- NOTE | ~2023-05-22 | US_ITS ---
EXAMINATION: US carotid duplex BI DATE: 05/22/2023 11:48 INDICATION: Dizziness and giddiness. Cerebral atherosclerosis. TECHNIQUE: Grayscale, color Doppler, and pulsed Doppler images of the cervical carotid arteries were obtained. The degree of vessel stenosis is placed in one of the following categories: normal, <50%, 5 0-69%, >=70% but less than near-occlusion, near-occlusion, or total occlusion. Note that percent sten osis relative to normal distal artery lumen diameter is indirectly measured from velocity measurement s as described by Wilber, et al. Radiology 2003; 229:340-346. COMPARISON: None. FINDINGS: RIGHT: The right common carotid artery (CCA) peak systolic velocity (PSV) is 54 cm/s. The right internal car otid artery (ICA) PSV is 82 cm/s. The right ICA end-diastolic velocity (EDV) is 29 cm/s. The right IC A/CCA PSV ratio is 1.5. Grayscale and color Doppler images yield an estimate of <50% diameter reducti on from plaque in the ICA. The external carotid artery (ECA) PSV is 71 cm/s. There is antegrade flow in the right vertebral artery. LEFT: The left CCA PSV is 65 cm/s. The left ICA PSV is 65 cm/s. The left ICA EDV is 20 cm/s. The left ICA/C CA PSV ratio is 1.0. Grayscale and color Doppler images yield an estimate of <50% diameter reduction from plaque in the ICA. The ECA PSV is 90 cm/s. There is antegrade flow in the left vertebral artery. IMPRESSION: 1. <50% stenosis in the right internal carotid artery. 2. <50% stenosis in the left internal carotid artery. Reviewed, dictated and finalized at location A. [employer]
== END 2023-05-22 09:58 | disposition home or self-care (01) ==
PROVIDERS: PCP Family Medicine; Visit Provider Nurse Practitioner
DX: R42 Dizziness and giddiness (principal); I65.23 Occlusion and stenosis of bilateral carotid arteries
CPT/HCPCS: 93880

== ENCOUNTER 2023-05-27 09:55 | Outpatient (CLI) | payer MEDICARE, SELFPAY ==
--- NOTE | 2023-05-27 10:00 | EST_ITS ---
Patient Info Name: Jose Martin Valderrama Age: 67 years : 1955 Gender: Male Ht: 67 in Wt: 187 lbs BSA: 2.03 m2 HR: 70 bpm BP: 136 / 88 mmHg Heart Rhythm: Sinus Rhythm Exam Date: 05/27/2023 10:13 AM Exam Location: Echo Lab Patient Status: Outpatient Admit Date: 05/27/2023 Staff Ordering Physician: Madina Perez Attending Provider: Madina Perez Exercise Technologist: Sigrid Johnson CT Exercise Physician: Darrell Barragan DO Exam Type: CA stress test treadmill Study Info Indications R07.89 - Other chest pain A treadmill exercise stress test was performed. Summary 1. 1. Negative Arsenio exercise stress test for ischemic ST changes by ECG criteria. 2. 2. Good functional capacity, achieving 8.6 METs of workload. 3. 3. Transient episode of atrial tachycardia at peak exercise. 4. 4. Appropriate HR response to exercise. 5. 5. Appropriate HR recovery at 1 minute post exercise. 6. 6. No imaging with stress testing. 7. 7. Patient informed of the above results. Protocol: Arsenio Stress ECG Details Stage: REST Duration (min): 1 min : 11 sec Speed (mph): 0.0 Grade (%): 0 HR (bpm): 70 SBP (mmHg): 136 DBP (mmHg): 88 METS: --- Stage: REST Duration (min): 14 min : 25 sec Speed (mph): 0.0 Grade (%): 0 HR (bpm): 80 SBP (mmHg): 136 DBP (mmHg): 88 METS: --- Stage: STAGE 1 Duration (min): 1 min : 0 sec Speed (mph): 1.7 Grade (%): 10 HR (bpm): 81 SBP (mmHg): 136 DBP (mmHg): 88 METS: --- Stage: STAGE 1 Duration (min): 2 min : 0 sec Speed (mph): 1.7 Grade (%): 10 HR (bpm): 85 SBP (mmHg): 136 DBP (mmHg): 88 METS: --- Stage: STAGE 1 Duration (min): 3 min : 0 sec Speed (mph): 1.7 Grade (%): 10 HR (bpm): 88 SBP (mmHg): 162 DBP (mmHg): 60 METS: --- Stage: STAGE 2 Duration (min): 1 min : 0 sec Speed (mph): 2.5 Grade (%): 12 HR (bpm): 91 SBP (mmHg): 162 DBP (mmHg): 60 METS: --- Stage: STAGE 2 Duration (min): 2 min : 0 sec Speed (mph): 2.5 Grade (%): 12 HR (bpm): 94 SBP (mmHg): 173 DBP (mmHg): 70 METS: --- Stage: STAGE 2 Duration (min): 3 min : 0 sec Speed (mph): 2.5 Grade (%): 12 HR (bpm): 98 SBP (mmHg): 173 DBP (mmHg): 70 METS: --- Stage: STAGE 3 Duration (min): 0 min : 56 sec Speed (mph): 3.4 Grade (%): 14 HR (bpm): 130 SBP (mmHg): 177 DBP (mmHg): 72 METS: --- Stage: RECOVERY Duration (min): 0 min : 3 sec Speed (mph): 1.5 Grade (%): 0 HR (bpm): 122 SBP (mmHg): 177 DBP (mmHg): 72 METS: --- Stage: RECOVERY Duration (min): 1 min : 3 sec Speed (mph): 0.0 Grade (%): 0 HR (bpm): 92 SBP (mmHg): 177 DBP (mmHg): 72 METS: --- Stage: RECOVERY Duration (min): 2 min : 3 sec Speed (mph): 0.0 Grade (%): 0 HR (bpm): 84 SBP (mmHg): 177 DBP (mmHg): 72 METS: --- Stage: RECOVERY Duration (min): 3 min : 3 sec Speed (mph): 0.0 Grade (%): 0
== END 2023-05-27 09:56 | disposition home or self-care (01) ==
LOC: ANHCARD 09:56
PROVIDERS: Visit Provider Nurse Practitioner
DX: I47.19 Other supraventricular tachycardia (principal)
CPT/HCPCS: 93017

== ENCOUNTER 2023-05-28 10:23 | Outpatient (CLI) | payer MEDICARE, SELFPAY ==
--- NOTE | ~2023-05-28 | US_ITS ---
EXAMINATION: US soft tissue UE LT DATE: 05/28/2023 10:36 INDICATION: Left palm mass. TECHNIQUE: Multiple grayscale and Doppler ultrasound images of the left hand were obtained. COMPARISON: None FINDINGS: In the patient's area of concern in the left hand, there is a 15 x 6 x 11 mm mixed hypoecho ic and anechoic mass. The mass abuts a tendon. IMPRESSION: 1. 15 mm mass in the hand in the patient's area of concern, most likely a multiloculated ganglion cys t. Reviewed, dictated and finalized at location A. NT EXECUTIVE IMPRESSION: 1. 15 mm mass in the hand in the patient's area of concern, most likely a multi loculated ganglion cyst.
== END 2023-05-28 10:24 ==
PROVIDERS: PCP Family Medicine; Visit Provider Plastic Surgery
DX: R22.32 Localized swelling, mass and lump, left upper limb (principal)
CPT/HCPCS: 76882

== ENCOUNTER 2023-06-26 08:20 | Outpatient (CLI) | payer MEDICARE, SELFPAY ==
[2023-06-26 08:32] LABS: Hematocrit 43.8 % (37.0-46.0); Hemoglobin 14.8 g/dL (12.4-15.3); Mean Corpuscular HGB Conc 33.8 g/dL (32.0-36.0); Mean Corpuscular Hemoglobin 29.2 pg (27.0-31.0); Mean Corpuscular Volume 86.4 fL (78.0-102.0); Mean Platelet Volume 9.6 fl (8.7-11.0); Platelet Count Result 197 K/mm3 (150-420); Red Blood Count 5.07 M/mm3 (4.70-6.10); Red Cell Distribution Width 12.2 % (11.6-14.4); White Blood Count 6.6 K/mm3 (4.8-10.8)
[2023-06-26 09:19] LABS: Alanine Aminotransferase 41 U/L (16-63); Albumin Level 4.2 g/dL (3.4-5.0); Alkaline Phosphatase 72 U/L (46-116); Anion Gap 3 mmol/L (8-16); Aspartate Amino Transferase 20 U/L (15-37); Bilirubin,Total 0.4 mg/dL (0.00-1.00); Blood Urea Nitrogen 21 mg/dL (7-18); Calcium 9.5 mg/dL (8.5-10.1); Carbon Dioxide 34 mmol/L (21-32); Chloride 99 mmol/L (98-108); Cholesterol 126 mg/dL (0-200); Estimated Glomerular Filt Rate > 60; Glucose 100 mg/dL (70-99); HDL Direct 40 mg/dL (40-60); LDL Cholesterol Calculated 77 mg/dL (<130); Osmolality Calculated 285 mOsm/kg (285-295); Potassium 4.2 mmol/L (3.5-5.1); Prostate Specific Antigen 0.9 ng/mL (< OR = 4.0); Sodium 136 mmol/L (136-145); Total Protein 7.3 g/dL (6.4-8.2); Triglycerides 47 mg/dL (0-150)
[2023-06-26 11:04] LABS: Hemoglobin A1C 5.2 % (<5.7)
[2023-06-29 21:48] LABS: Vitamin D 25 Hydroxy 51 ng/mL (30-100)
== END 2023-06-26 08:21 | disposition home or self-care (01) ==
LOC: CHSLAB 08:22
PROVIDERS: PCP Family Medicine; Visit Provider Nurse Practitioner
DX: R73.01 Impaired fasting glucose (principal); E78.2 Mixed hyperlipidemia; E55.9 Vitamin D deficiency, unspecified; Z12.5 Encounter for screening for malignant neoplasm of prostate; K22.2 Esophageal obstruction
CPT/HCPCS: 36415; 80053; 80061; 82306; 83036; 84153; 84443; 85027; G0103

== ENCOUNTER 2023-10-08 11:51 | Outpatient (CLI) | payer MEDICARE, SELFPAY ==
--- NOTE | ~2023-10-08 | XR_ITS ---
EXAM: XR knee RT 3V DATE: 10/08/2023 12:33 HISTORY: M25.561 - Pain in right knee . COMPARISON: 01/27/2018. FINDINGS: Normal mineralization. No fracture or dislocation. No lytic or blastic lesion. Mild medial and lateral joint space narrowing. Mild tricompartmental osteophytosis. Quadriceps enthesopathy. Sca ttered atherosclerotic calcifications. Small joint effusion. No erosion or periosteal change. Soft ti ssues within normal limits. IMPRESSION: Mild tricompartmental right knee osteoarthritis. Reviewed, dictated and finalized at location K.
--- NOTE | ~2023-10-08 | XR_ITS ---
EXAMINATION: XR chest 2V 10/08/2023 12:33 INDICATION: Cough PROCEDURE: 2 view chest COMPARISON Comparison to multiple prior studies sequentially, with oldest reviewed study dated 09/18. FINDINGS: The lungs are clear. The cardiomediastinal silhouette is within normal limits. There are no pleural effusions. There is no pneumothorax suspected. IMPRESSION: 1: NO ACUTE CARDIOPULMONARY DISEASE. Reviewed, dictated and finalized at location B.
== END 2023-10-08 11:52 ==
PROVIDERS: PCP Family Medicine; Visit Provider Nurse Practitioner
DX: M17.11 Unilateral primary osteoarthritis, right knee (principal); R05.9 Cough, unspecified
CPT/HCPCS: 71046; 73562

== ENCOUNTER 2023-10-25 07:42 | Outpatient (CLI) | payer MEDICARE, SELFPAY ==
[2023-10-25 09:48] LABS: Alanine Aminotransferase 38 U/L (16-63); Albumin Level 3.9 g/dL (3.4-5.0); Alkaline Phosphatase 74 U/L (46-116); Anion Gap 7 mmol/L (4-12); Aspartate Amino Transferase 20 U/L (15-37); Bilirubin,Total 0.5 mg/dL (0.00-1.00); Blood Urea Nitrogen 26 mg/dL (7-18); Calcium 9.1 mg/dL (8.5-10.1); Carbon Dioxide 31 mmol/L (21-32); Chloride 105 mmol/L (98-108); Cholesterol 132 mg/dL (0-200); Estimated Glomerular Filt Rate > 60; Glucose 86 mg/dL (70-99); HDL Direct 39 mg/dL (40-60); LDL Cholesterol Calculated 77 mg/dL (<130); Osmolality Calculated 299 mOsm/kg (285-295); Potassium 4.3 mmol/L (3.5-5.1); Sodium 143 mmol/L (136-145); Thyroid Stimulating Hormone 1.44 uIU/mL (0.36-3.74); Total Protein 7.3 g/dL (6.4-8.2); Triglycerides 81 mg/dL (0-150)
[2023-10-26 08:30] LABS: Vitamin D 25 Hydroxy 58 ng/mL (30-100)
== END 2023-10-25 07:43 | disposition home or self-care (01) ==
LOC: CHSLAB 07:44
PROVIDERS: PCP Nurse Practitioner; Visit Provider Nurse Practitioner
DX: G47.00 Insomnia, unspecified (principal); E78.5 Hyperlipidemia, unspecified; E55.9 Vitamin D deficiency, unspecified
CPT/HCPCS: 36415; 80053; 80061; 82306; 84443

== ENCOUNTER 2023-10-29 14:02 | Outpatient (CLI) | payer MEDICARE, SELFPAY ==
--- NOTE | ~2023-10-29 | XR_ITS ---
EXAMINATION: XR thoracic spine 3V DATE: 10/29/2023 14:18 INDICATION: Mid to low back pain. TECHNIQUE: 3 views of thoracic spine were obtained. COMPARISON: Chest 2 views 10/08/2023 FINDINGS: There is 10 degrees levoscoliosis of upper thoracic spine. Vertebral body heights are olga l. There are endplate osteophytes at most levels. There is mildly decreased disc height at multiple l evels. There is multilevel mild facet joint osteoarthritis. IMPRESSION: 1. Mild thoracic spondylosis. 2. Thoracic levoscoliosis. Reviewed, dictated and finalized at location E.
--- NOTE | ~2023-10-29 | XR_ITS ---
EXAMINATION: XR lumbar spine 2-3V DATE: 10/29/2023 14:18 INDICATION: Mid to low back pain. TECHNIQUE: 3 views of lumbar spine were obtained. COMPARISON: CT abdomen and pelvis 10/02/2018 FINDINGS: There is 18 degrees levoscoliosis of lumbar spine. There is 3 mm retrolisthesis of L2 on L3 . Vertebral body heights are normal. There is moderately decreased disc height at L1-L2 and L2-L3 and severely decreased disc height at L3-L4, L4-L5, and L5-S1 L5-S1. There is multilevel severe facet beto int osteoarthritis. IMPRESSION: 1. Severe lumbar spondylosis. 2. Lumbar levoscoliosis. Reviewed, dictated and finalized at location E.
== END 2023-10-29 14:03 ==
PROVIDERS: PCP Family Medicine; Visit Provider Nurse Practitioner
DX: M43.04 Spondylolysis, thoracic region (principal); M41.84 Other forms of scoliosis, thoracic region; M43.06 Spondylolysis, lumbar region; M41.86 Other forms of scoliosis, lumbar region
CPT/HCPCS: 72072; 72100

== ENCOUNTER 2024-02-26 06:36 | Day surgery (SDC) | payer MEDICARE, SELFPAY ==
[2024-02-18 09:32] VITALS: BMI 29.7
--- NOTE | 2024-02-26 07:04 | WPDHPUPDATE1 ---
History and Physical Update Update Date/Time: 02/26/24 07:04 Patient seen and examined in pre-operative holding area. No interval change in medical history or symptoms. Patient recalls previous discussion of benefits and alternatives to procedure. Continues to desire to proceed with left palmar mass excision . Reviewed procedure, post-op expectations and risks including but not limited to bleeding, infection, injury to tendon/nerve/vessel, decreased hand function, stiffness, RSD, no change or worsening of symptoms, recurrence. I discussed the possible use of assistants and their participation in the case. Patient stated understanding and signed the consent form wishing to proceed.
--- NOTE | 2024-02-26 07:04 | W.PM.PROC2 ---
Procedure Note - Detailed Date of Procedure 02/26/24 Pre-op Diagnosis Localized Swelling Mass and Lump Upper Left Limb Post-op Diagnosis Same Procedure Performed left palmar mass excision Surgeon Seven Aparicio MD Manager Distribution janki bowen pa-c Anesthesia MAC Description of Procedure INFORMED CONSENT: The patient was seen and examined and marked in the pre-op area.? The patient signed the consent form. PROCEDURE IN DETAIL:The patient taken back to OR on the stretcher in supine position. Time out performed with anesthesia, surgeon and staff agreeing on patient's name site and surgery to be performed SCDs were placed on the lower extremities and inflated. A tourniquet was placed on {left} upper extremity and antibiotics given IV After anesthesia administered sedation I injected {8}cc 1%lido with epi and 0.5% marcaine plain at the operative site The?{left upper extremity}?was prepped and draped in sterile fashion the??{left upper extremity} was? exsanguinated with Esmarch bandage proximal to the mass and tourniquet inflated to 250mmHg I proceeded with making a Brenda incision over the mass through skin and dermis with a 15 blade scalpel. Littler scissors were used to elevate skin flaps and spread through subcutaneous tissue down to the mass. I made incision to the palmar fascia to enter the deep space of the hand. Here the mass was identified. I proceeded with circumferential dissection around this gelatinous mass excising it from the deep tissue with bipolar cautery and Littler scissors noting the mass was closely approximated to the the common neurovascular bundle which was protected throughout the procedure. The flexor tendon did not appear to be involved. I irrigated with normal saline. Skin was closed with 4-0 chromic. A dressing of xeroform, 4x4, you, and an prince bandage was aookued after the tourniquet was let down noting the hand was warm and well perfused. The patient was then awaken from anesthesia and transferred to the recovery room in stable condition.? Complications - none EBL- 0cc Disposition - home in stable conditions janki bowen pa-c was essential for positioning, retraction, closure and dressing placement [facility] Billing Surgery - Charge Forward: Surgery Billing ([id number] for janki)
[2024-02-26 07:32] VITALS: BP 135/81; PULSE 72; RESP 16; TEMP 37.1; O2SAT 96; BMI 29.9
[2024-02-26] MEDS: LACTATED RINGERS 1,000 ML 30 ML IV CONT (07:45)
--- NOTE | 2024-02-26 08:15 | WPDANESEPPF ---
Anes - Initial Pre Proc Eval Procedure: Operation Date: 02/26/24 08:45 Proposed Procedures p Excision Left Palmar Mass/Ganglion Cyst - Seven Aparicio MD Date/Time: 02/26/24 08:15 Surgeon: Seven Aparicio MD Pre Op Diagnosis: Localized Swelling Mass and Lump Upper Left Limb Patient Data Age: 68 Gender: M Height: 1.7 m Weight: 86.8 kg Last Vital Signs Temp 37.1 C 02/26/24 07:32 Pulse 72 02/26/24 07:32 Resp 16 02/26/24 07:32 BP 135/81 02/26/24 07:32 Pulse Ox 96 02/26/24 07:32 O2 Del Method Room Air 02/26/24 07:32 Allergies Allergy/AdvReac Type Severity Reaction Status Date / Time Penicillins Allergy Unknown unkown Verified 02/26/24 07:21 lisinopril AdvReac Unknown cough Verified 02/26/24 07:21 Home Medications Medication Instructions Recorded Confirmed Type omega-3 fatty acids 1,000 mg 1,000 mg PO DAILY 02/18/20 02/26/24 History capsule (Fish Oil Concentrate) ascorbic acid (vitamin C) 500 mg 1,000 mg PO DAILY 08/02/20 02/26/24 History capsule vitamin B complex 1 tablet PO DAILY 08/02/20 02/26/24 History cholecalciferol (vitamin D3) 50 50 mcg PO DAILY 03/20/22 02/26/24 History mcg (2,000 unit) capsule multivitamin-ferrous 1 tablet PO DAILY 03/20/22 02/26/24 History fumarate-folic acid 18 mg-400 mcg tablet (Sentry) meloxicam 7.5 mg tablet 7.5 mg PO DAILY #90 tabs 01/21/24 02/26/24 Rx atorvastatin 10 mg tablet 10 mg PO DAILY 02/18/24 02/26/24 History fluticasone propionate 50 2 spray intranasal DAILY 02/18/24 02/26/24 History mcg/actuation nasal spray,suspension omeprazole 40 mg capsule,delayed 40 mg PO DAILY 02/18/24 02/26/24 History release tamsulosin 0.4 mg capsule 0.4 mg PO DAILY 02/18/24 02/26/24 History trazodone 100 mg tablet 200 mg PO HS PRN Insomnia 02/18/24 02/26/24 History tramadol 50 mg tablet 50 mg PO Q6H PRN pain #12 tabs 02/26/24 Rx Patient hx anesthesia problems: none Family hx anesthesia problems: none Results Review: All pre-operative results and documents have been reviewed as part of the pre-operative evaluation. [facility] Past Medical History Medical History (Updated 02/26/24 @ 08:15 by Otto Shah MD) Arthritis BMI 33.0-33.9,adult BPH (benign prostatic hyperplasia) Cervical radiculopathy Diverticulitis Esophageal stricture Essential (primary) hypertension Gastro-esophageal reflux disease without esophagitis Mixed hyperlipidemia Obesity (BMI 30-39.9) SUZANNA (obstructive sleep apnea) Osteoarthritis of both knees Splenic mass Surgical History Surgical History History of orthopedic surgery right knee arthroscopy Family History Family History Father Hypertension, Onset Age: 76 Family history of throat cancer, Onset Age: 76 Mother Family history of lung cancer, Onset Age: 62 Family history of malignant neoplasm of breast in first degree relative, Onset Age: 62 Social History Social History Smoking status: Never smoker Second hand tobacco smoke exposure: Yes Alcohol intake: never Substance use: never Substance use type: does not use Lack of Transportation: No Lack of Food: Never True Current Housing: I Have Housing Concerned About Future Housing: No Difficulty Paying Gas/Electric Bills: No Difficulty Paying for Meds: No Currently Unemployed: No Education: High School Diploma/GED Difficulty w/ Childcare or Family Care: No Living arrangements: with family Occupation/Education: retired Gender identity (if verbalized by the patient): Male Spiritual care concerns: No Anes - Eval Final PreProcedure Day of Procedure 02/26/24 08:15 Patient weight: obese Heart: regular rate and rhythm Lungs: clear to auscultation Airway: Mallampati scale class II Neurological: alert and orie
[2024-02-26] MEDS: ceFAZolin SODIUM 2 GM/20 ML SW SYRINGE IV PUSH (08:21)
[2024-02-26] MEDS: BUPivacaine HCL 0.5% 10 ML AMP 3.5 ML INFILTRATE (08:25)
[2024-02-26] MEDS: LIDO 1%/EPINEPHRINE 1:100,000 50 ML VIAL INFILTRATE (08:25)
[2024-02-26 08:44] VITALS: BP 97/51; PULSE 67; RESP 14; O2SAT 100
[2024-02-26 08:55] VITALS: BP 107/70; PULSE 64; RESP 16; O2SAT 94
--- NOTE | 2024-02-26 08:57 | WPDANESPN ---
Anes - Prog Note Post-Op Date/Time: 02/26/24 08:57 Cardiovascular status: normal Respiratory status: normal Airway patency: baseline Mental status: baseline Post-Op hydration status: normal Vital Signs: Last Vital Signs Temp 37.1 C 02/26/24 07:32 Pulse 72 02/26/24 07:32 Resp 16 02/26/24 07:32 BP 135/81 02/26/24 07:32 Pulse Ox 96 02/26/24 07:32 O2 Del Method Room Air 02/26/24 07:32 Pain Score (VAS): 0/10 I/O: Intake & Output 02/25/24 02/26/24 02/26/24 23:59 07:59 15:59 Intake Total 0 Balance 0 Patient Feedback: Patient satisfied with anesthetic care.
[2024-02-26 09:15] VITALS: BP 115/75; PULSE 70; RESP 18; O2SAT 95
== END 2024-02-26 09:20 | disposition home or self-care (01) ==
PROVIDERS: PCP Family Medicine; Visit Provider Plastic Surgery
PROC: (CPT 26116; principal; 2024-02-26 08:45)
DX: R22.32 Localized swelling, mass and lump, left upper limb (principal)
CPT/HCPCS: 26116

== ENCOUNTER 2024-02-26 08:40 | Outpatient (NON) | payer MEDICARE, SELFPAY | END 2024-02-26 08:41 | disposition home or self-care (01) | PROVIDERS: PCP Family Medicine; Visit Provider Plastic Surgery | DX: M24.542 Contracture, left hand (principal) | CPT/HCPCS: 88304 ==

== ENCOUNTER 2024-03-03 11:42 | Outpatient (CLI) | payer MEDICARE, SELFPAY ==
--- NOTE | ~2024-03-03 | XR_ITS ---
EXAMINATION: XR chest 2V 03/03/2024 12:21 INDICATION: Cough PROCEDURE: 2 view chest COMPARISON: Comparison to multiple prior studies sequentially, with oldest reviewed study dated 09/28. FINDINGS: The lungs are clear. The cardiomediastinal silhouette is within normal limits. There are no pleural effusions. There is no pneumothorax suspected. IMPRESSION: 1: NO ACUTE CARDIOPULMONARY DISEASE. Reviewed, dictated and finalized at location B.
== END 2024-03-03 11:43 ==
PROVIDERS: PCP Family Medicine; Visit Provider Nurse Practitioner
DX: R05.9 Cough, unspecified (principal)
CPT/HCPCS: 71046

== ENCOUNTER 2024-07-09 12:19 | Outpatient (CLI) | payer MEDICARE, SELFPAY ==
--- NOTE | ~2024-07-09 | MR_ITS ---
EXAMINATION: MR thoracic spine wo con DATE: 07/09/2024 13:23 INDICATION: Dorsalgia TECHNIQUE: Magnetic resonance imaging (MRI) of the thoracic spine was performed without intravenous c ontrast. Sagittal localizer T1-weighted FSE of the cervicothoracic spine was obtained. Thoracic spine sequences included sagittal T2-weighted FSE, sagittal T1-weighted SE, Sagittal T2-weighted FS FSE, a nd axial T2-weighted FSE. COMPARISON: None FINDINGS: 15 degrees upper thoracic levoscoliosis and 8 degrees lower thoracic dextrocurvature. Sagittal alignm ent is normal. Vertebral body heights are normal. There is Schmorl's nodes along a few of the inferio r endplates in the lower thoracic spine. There are T1 hyperintense hemangiomas at T5 and T9. There is severe disc height loss at C6-C7 with disc bulges contributing to mild central canal stenosis. There is multilevel mild disc height loss at the majority levels throughout the thoracic spine. Annular fi ssure and central disc extrusion at T9-T10 which results in mild central canal stenosis and mildly in dents the ventral surface of the cord. Additional 3 small central disc protrusion at T8-T9 with only negligible central canal stenosis. There is multilevel mild thoracic facet osteoarthritis with only m inimal to mild neural foraminal stenosis at a few levels. There is normal spinal cord signal. The con us terminates at L1. The paravertebral soft tissues are unremarkable. IMPRESSION: 1. 15 degrees upper thoracic levoscoliosis with mild spondylosis. Reviewed, dictated and finalized at location A. [facility]
--- NOTE | ~2024-07-09 | MR_ITS ---
MRI of the lumbar spine Clinical History: Back pain Technique: Axial T2-weighted images, and sagittal T1-weighted, T2-weighted, and T2 fat-sat images wer e acquired. Findings: No acute fracture seen. There is 3 mm retrolisthesis of L1 over L2. There is 4 mm retrolist hesis of L2 over L3. There are multilevel reactive marrow signal changes due to underlying degenerati ve disc disease, but no suspicious/aggressive bone marrow signal abnormality seen. At L1-L2, there is advanced degenerative distended. There is mild disc bulge and mild to moderate fac et arthropathy. No central canal stenosis. There is mild to moderate bilateral neural foraminal narro wing. At L2-L3, there is advanced degenerative disc narrowing. There is minimal disc bulge with moderate fa cet arthropathy. No central canal stenosis. There is advanced right neural foraminal narrowing. Left neural foramen preserved. At L3-L4, there is advanced degenerative disc narrowing. There is minimal disc bulge with moderate fa cet arthropathy. No central canal stenosis. There is moderate left neural foraminal narrowing. Right neural foramen preserved. At L4-L5, there is advanced degenerative disc narrowing. There is minimal disc bulge with moderate to advanced facet arthropathy. No central canal stenosis. There is moderate to advanced left neural for aminal narrowing. There is minimal right neural foraminal narrowing. At L5-S1, there is minimal disc bulge with moderate facet arthropathy. No central canal stenosis. The re is mild to moderate left neural foraminal narrowing. Paravertebral soft tissues are unremarkable. Impression: Moderate to advanced degenerative spondylosis, as above. 3 mm retrolisthesis of L1 over L2. 4 mm retrolisthesis of L2 over L3. Reviewed, dictated and finalized at [facility] M. TIC SCIENTIST Impression: Moderate to advanced degenerative spondylosis, as above. 3 mm retrolisthesis of L1 over L2. 4 mm retrolisthesis of L2 over L3.
== END 2024-07-09 12:20 | disposition home or self-care (01) ==
PROVIDERS: PCP Family Medicine; Visit Provider Nurse Practitioner
DX: M41.84 Other forms of scoliosis, thoracic region (principal); M47.814 Spondylosis without myelopathy or radiculopathy, thoracic region; M47.816 Spondylosis without myelopathy or radiculopathy, lumbar region; M43.16 Spondylolisthesis, lumbar region
CPT/HCPCS: 72146; 72148

== ENCOUNTER 2024-07-12 08:37 | Outpatient (CLI) | payer MEDICARE, SELFPAY ==
[2024-07-12 08:51] LABS: Hematocrit 42.6 % (37.0-46.0); Mean Corpuscular HGB Conc 35.2 g/dL (32-36); Mean Corpuscular Hemoglobin 29.2 pg (27.0-31.0); Mean Corpuscular Volume 82.9 fL (78.0-102.0); Mean Platelet Volume 9.6 fl (8.7-11.0); Platelet Count Result 208 K/mm3 (150-420); Red Blood Count 5.14 M/mm3 (4.70-6.10); Red Cell Distribution Width 12.1 % (11.6-14.4); White Blood Count 7.5 K/mm3 (4.8-10.8)
[2024-07-12 10:18] LABS: Alanine Aminotransferase 35 U/L (16-63); Albumin Level 4.3 g/dL (3.4-5.0); Alkaline Phosphatase 91 U/L (46-116); Anion Gap 7 mmol/L (4-12); Aspartate Amino Transferase 18 U/L (15-37); Bilirubin,Total 0.7 mg/dL (0.00-1.00); Blood Urea Nitrogen 30 mg/dL (7-18); Calcium 9.8 mg/dL (8.5-10.1); Carbon Dioxide 30 mmol/L (21-32); Chloride 102 mmol/L (98-108); Cholesterol 134 mg/dL (0-200); Estimated Glomerular Filt Rate 59; Glucose 90 mg/dL (70-99); HDL Direct 36 mg/dL (40-60); LDL Cholesterol Calculated 82 mg/dL (<130); Osmolality Calculated 294 mOsm/kg (285-295); Potassium 4.5 mmol/L (3.5-5.1); Prostate Specific Antigen 1.4 ng/mL (< OR = 4.0); Sodium 139 mmol/L (136-145); Thyroid Stimulating Hormone 1.68 uIU/mL (0.36-3.74); Total Protein 7.6 g/dL (6.4-8.2); Triglycerides 79 mg/dL (0-150)
[2024-07-14 02:43] LABS: Vitamin D 25 Hydroxy 53 ng/mL (30-100)
== END 2024-07-12 08:38 | disposition home or self-care (01) ==
LOC: CHSLAB 08:39
PROVIDERS: PCP Family Medicine; Visit Provider Nurse Practitioner
DX: I10 Essential (primary) hypertension (principal); R73.01 Impaired fasting glucose; Z12.5 Encounter for screening for malignant neoplasm of prostate; E55.9 Vitamin D deficiency, unspecified
CPT/HCPCS: 36415; 80053; 80061; 82306; 83036; 84153; 84443; 85027; G0103

== ENCOUNTER 2024-08-12 08:33 | Outpatient (CLI) | payer MEDICARE, SELFPAY ==
--- OUTSIDE RECORDS SUMMARY | 2024-08-12 08:53 | XMS_ITS | Clinical Summary ---
Author Organization [facility] Address [address] [place] [address] [place] [address] Care Team Providers Care Vp Product Management Name Role Phone Tracee Aguilera DO Primary Care Provider [phone] Allergies No known active allergies Medications nirmatrelvir & ritonavir 300/100 (PAXLOVID, 300/100,) 20 x 150 MG & 10 x 100MG tablet pack Take TWO nirmatrelvir 150 mg tablet(s) along with ONE ritonavir 100 mg tablet, with all three tablets taken together, twice daily for 5 days. May take with or without food. Swallow tablets whole. Do not chew, break or crush.. 30 tablet Active Social History Tobacco Use Types Packs/Day Years Used Date Smoking Tobacco: Never Smokeless Tobacco: Never Tobacco Cessation:Counseling Given: Not Answered Alcohol Use Standard Drinks/Week Comments Never 0 (1 standard drink = 0.6 oz pur e alcohol) Sex and Gender Information Value Date Recorded Sex Assigned at Not on file Legal Sex Male 12:45 PM NETWORK ARCHITECT Gender Identity Not on file Sexual Orientation Not on file Last Filed Vital Signs Vital Sign Reading Time Taken Comments Blood Pressure 153/84 09/16/2023 1:05 PM NETWORK ARCHITECT Pulse 72 09/16/2023 1:05 PM NETWORK ARCHITECT Temperature 36.4 ??C (97.5 ??F) 09/16/2023 1:05 PM CS T Respiratory Rate 18 09/16/2023 1:05 PM NETWORK ARCHITECT Oxygen Saturation 94% 09/16/2023 2:30 PM NETWORK ARCHITECT Inhaled Oxygen Concentration - - Weight 88.6 kg (195 lb 4 oz) 09/16/2023 1:05 PM NETWORK ARCHITECT Height 170.2 cm (5' 7 ) 09/16/2023 1:05 PM NETWORK ARCHITECT Body Mass Index 30.58 09/16/2023 1:05 PM NETWORK ARCHITECT Plan of Treatment Health Maintenance Due Date Last Done Comments Colorectal Cancer Screening Colonoscopy (10 Years) 1955 Hepatitis C 1971 DTaP, Tdap and Td Vaccines (1 - Tdap) 1972 Zoster Vaccines (1 of 2) 2003 Annual Medicare Wellness Visit 2018 COVID-19 Vaccine (5 - season) 2024 07/09/2022, 07/17/2021, 11/01/2020, Additional history exists Influenza Adult (#1) 2024 RSV Immunization or 60+ Years (1 - 1-dose 75+ series) 2028 Pneumococcal Vaccine: 65+ Years Completed 08/02/2021, 08/02/2020 Meningococcal B Vaccine Aged Out No l onger eligible based on patient's age to complete this topic Meningococcal Vaccine Aged Out No geo eva eligible based on patient's age to complete this topic RSV Immunizations Under 20 Months Aged Out No longer eligible based on patient's age to complete this topic Insurance [facility] Care Teams Vp Product Management Relationship Specialty Start Date End Date Tracee Aguilera DO [address] [place] [address] PCP - General FAMILY PRACTICE 09/16/23
[2024-08-12 09:31] LABS: Alanine Aminotransferase 37 U/L (16-63); Alkaline Phosphatase 97 U/L (46-116); Anion Gap 8 mmol/L (4-12); Aspartate Amino Transferase 18 U/L (15-37); Bilirubin,Total 0.6 mg/dL (0.00-1.00); Blood Urea Nitrogen 26 mg/dL (7-18); Carbon Dioxide 28 mmol/L (21-32); Chloride 104 mmol/L (98-108); Cholesterol 124 mg/dL (0-200); Estimated Glomerular Filt Rate > 60; Glucose 94 mg/dL (70-99); HDL Direct 32 mg/dL (40-60); LDL Cholesterol Calculated 66 mg/dL (<130); Osmolality Calculated 294 mOsm/kg (285-295); Potassium 4.3 mmol/L (3.5-5.1); Sodium 140 mmol/L (136-145); Total Protein 6.8 g/dL (6.4-8.2); Triglycerides 132 mg/dL (0-150)
== END 2024-08-12 08:34 | disposition home or self-care (01) ==
PROVIDERS: PCP Family Medicine; Visit Provider Nurse Practitioner
DX: E78.2 Mixed hyperlipidemia (principal)
CPT/HCPCS: 36415; 80053; 80061

== ENCOUNTER 2024-08-27 12:08 | Outpatient (CLI) | payer MEDICARE, SELFPAY ==
--- OUTSIDE RECORDS SUMMARY | 2024-08-27 12:11 | XMS_ITS | Continuity of Care Document ---
[facility] Organization [facility] Address [address] [place] [address] Phone Care Team Providers Care Animal Rides Manager Name Role Phone Benitez OD, Jesus Unavailable Unavailable Procedures Procedure Date Office/outpatient Visit, New Office/outpatient Visit, [facility] Advance Directives Directive Yes / No Effective Date File Name No Information Encounters Encounter Description Practice Location Reason(s) For Visit Diagnoses Date Provider Providers Copied on Encounter Office/outpat ient Visit, [facility], [id number] [place] [address] [address], [place], [place], [id number], tel:[phone] [facility] No Information 3-201 0 Benitez OD Jesus. [address] , [address], [place], [address], [place]. tel:[phone] Referring Provider: Júnior Mclean, [address] [place], [address]. tel:[phone] Office/outpat ient Visit, [facility], [address], [place], [place], [id number], tel:[phone] [facility] No Information 3-200 7 Benitez OD Jesus. [address] [facility] [address] , [address], [place], [address], [place]. tel:[phone] Referring Provider: Júnior Mclean, [address] [place], [address]. tel:[phone] Family History Family Member Type Diagnosis Age At Onset No Information Payers Payer name Insurance type Covered libertarian ID Authoriza tion(s) No Information Social History [...]
--- OUTSIDE RECORDS SUMMARY | 2024-08-27 12:11 | XMS_ITS | Clinical Summary ---
Author Organization [facility] Address [address] [place] [address] Care Team Providers Care Hvac Project Engineer Name Role Phone Tracee Aguilera DO Primary Care Provider [phone] Allergies Active Allergy Reactions Criticality Noted Date Comments Penicillins Other (see comment) 08/20/2024 unsure Medications aspirin 81 MG chewable tablet Chew 1 tablet (81 mg total) by mouth daily. Active metoprolol succinate ER (TOPROL-XL) 25 MG 24 hr tablet Take 0.5 tablets (12.5 mg total) by mouth daily. Active omeprazole (PRILOSEC) 40 MG capsule Take 1 capsule (40 mg total) by mouth daily. Active tamsulosin (FLOMAX) 0.4 MG Cap Take 1 capsule (0.4 mg total) by mouth daily. Active meloxicam (MOBIC) 15 MG tablet Take 1 tablet (15 mg total) by mouth daily. Active multivitamin with minerals liquid Take 15 mLs by mouth daily. Active atorvastatin (LIPITOR) 10 MG tablet Take 1 tablet (10 mg total) by mouth nightly at bedtime. Active fluticasone propionate (FLONASE) 50 MCG/ACT nasal spray Active traZODone (DESYREL) 100 MG tablet Take 1 tablet (100 mg total) by mouth nightly at bedtime. Active apixaban (ELIQUIS) 5 MG tablet Take 1 tablet (5 mg total) by mouth 2 (two) times daily. 60 tablet 08/21/19 25 Active nirmatrelvir & ritonavir 300/100 (PAXLOVID, 300/100,) 20 x 150 MG & 10 x 100MG tablet pack Take TWO nirmatrelvir 150 mg tablet(s) along with ONE ritonavir 100 mg tablet, with all three tablets taken together, twice daily for 5 days. May take with or without food. Swallow tablets whole. Do not chew, break or crush.. 30 tablet 09/16/19 24 025 Discontinued Encounters Date Type Department Care Team Description 08/20/2024 3:33 PM CUPOLA TAPPER - 08/21/2024 7:38 PM CUPOLA TAPPER Emergency [facility] [facility] [address], [facility] Harley Lundberg, Yesenia Anthony, Wilton Gallardo MD Chest Pain Discharge Disposition: Home or Self Care (Routine Discharge) 08/20/2024 Travel from Last 3 Months Social History Tobacco Use Types Packs/Day Years Used Date Smoking Tobacco: Never Smokeless Tobacco: Never Tobacco Cessation:Counseling Given: Not Answered Alcohol Use Standard Drinks/Week Comments Never 0 (1 standard drink = 0.6 oz pur e alcohol) Sex and Gender Information Value Date Recorded Sex Assigned at Male 08/20/2024 3:45 PM CUPOLA TAPPER Legal Sex Male 12:45 PM CUPOLA TAPPER Gender Identity Not on file Sexual Orientation Not on file Last Filed Vital Signs Vital Sign Reading Time Taken Comments Blood Pressure 122/83 08/21/2024 7:15 PM CUPOLA TAPPER Pulse 85 08/21/2024 7:15 PM CUPOLA TAPPER Temperature 36.7 C (98.1 F) 08/20/2024 3:29 PM CUPOLA TAPPER Respiratory Rate 22 08/21/2024 7:15 PM CUPOLA TAPPER Oxygen Saturation 95% 08/21/2024 7:15 PM CUPOLA TAPPER Inhaled Oxygen Concentration - - Weight 86.6 kg (191 lb) 08/20/2024 3:29 PM CUPOLA TAPPER Height 170.2 cm (5' 7 ) 08/20/2024 3:29 PM CUPOLA TAPPER Body Mass Index 29.91 08/20/2024 3:29 PM CUPOLA TAPPER Plan of Treatment Health Maintenance Due Date Last Done Comments Colorectal Cancer Screening Colonoscopy (10 Years) 1953 Hepatitis C 1971 DTaP, Tdap and Td Vaccines (1 - Tdap) 1972 Zoster Vaccines (1 of 2) 2003 Annual Medicare Wellness Visit 2018 COVID-19 Vaccine ( season) 2024 07/09/2022, 07/17/2021, 11/01/2020, Additional history [...] on patient's age to complete this topic Procedures Procedure Name Priority Date/Time Associated Diagnosis Comments TROPONIN, QUANT STAT 08/21/2024 6:31 PM CUPOLA TAPPER ECG 12-LEAD Routine 08/21/2024 8:45 AM CUPOLA TAPPER TROPONIN, QUANT STAT 08/21/2024 8:32 AM CUPOLA TAPPER HEPARIN, ANTI XA, UFH STAT 08/21/2024 6:29 AM CUPOLA TAPPER PROTHROMBIN TIME, VENOUS STAT 08/21/2024 6:29 AM CUPOLA TAPPER HEPARIN, ANTI XA, UFH STAT 08/21/2024 12:38 AM CUPOLA TAPPER TROPONIN, QUANT STAT 08/20/2024 6:07 PM CUPOLA TAPPER TROPONIN, QUANT STAT 08/20/2024 4:47 PM CUPOLA TAPPER COMPREHENSIVE METABOLIC PANEL STAT 08/20/2024 4:47 PM CUPOLA TAPPER CBC W/DIFF AUTOMATED STAT 08/20/2024 4:47 PM CUPOLA TAPPER XR CHEST PA+LAT STAT 08/20/2024 4:42 PM CUPOLA TAPPER PROTHROMBIN TIME, VENOUS STAT 08/20/2024 4:42 PM CUPOLA TAPPER HEPARIN, ANTI XA, UFH STAT 08/20/2024 4:42 PM CUPOLA TAPPER ECG 12-LEAD Routine 08/20/2024 3:22 PM CUPOLA TAPPER from Last 3 Months Results * (ABNORMAL) TROPONIN, QUANT (08/21/2024 6:31 PM CUPOLA TAPPER) Only the most recent of4 resultswithin the time period is included. TROPONIN I HIGH SENSITIVITY 86(H) 0 - 76 ng/L 08/21/2024 6:54 PM CUPOLA TAPPER [facility] 08/21/2024 6:31 PM CUPOLA TAPPER us Wilton Sheriff MD LABORATORY Final Res ult [facility] [place] [id number], * ECG 12 lead (08/21/2024 8:45 AM CUPOLA TAPPER) Only the most recent of2 resultswithin the time period is included. 08/21/2024 8:45 AM CUPOLA TAPPER Narrative [facility] - 08/21/2024 8:48 AM CUPOLA TAPPER [address] 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 HEPARIN ANTI XA UFH 0.35 0.30 - 0.70 IU/ML 08/21/2024 6:47 AM CUPOLA TAPPER [facility] Comment: UFH Therapeutic Anti Xa Ranges: Medical Therapeutic Range: 0.30 - 0.70 IU/mL Cardiac Therapeutic Range: 0.30 - 0.50 IU/mL Neuro Therapeutic Range: 0.20 - 0.40 IU/mL 08/21/2024 6:29 AM CUPOLA TAPPER Harley Lundberg DO LABORATORY Final Result Performing Organization Address City/[facility]/ZIP Co de Phone Number [facility] [place] [address], * (ABNORMAL) PROTIME/INR, VENOUS (08/21/2024 6:29 AM CUPOLA TAPPER) Only the most recent of2 resultswithin the time period is included. PROTIME 12.7(H) 9.4 - 12.5 SEC 08/21/2024 6:57 AM CUPOLA TAPPER [facility] INR 1.1(H) 0.8 - 1.0 08/21/2024 6:57 AM CUPOLA TAPPER [facility] 08/21/2024 6:29 AM CUPOLA TAPPER us Harley Lundberg DO LABORATORY Final Result [facility] [address] [place] [address], * (ABNORMAL) COMPREHENSIVE METABOLIC PANEL (08/20/2024 4:47 PM CUPOLA TAPPER) SODIUM S/P/B 138 136 - 145 MMOL/L 08/20/2024 5:11 PM CUPOLA TAPPER [facility] POTASSIUM S/P/B 3.9 3.5 - 5.1 MMOL/L 08/20/2024 5:11 PM [facility] CHLORIDE S/P/B 103 98 - 107 MMOL/L 08/20/2024 5:11 PM [facility] CO2 27.1 21.0 - 32.0 MMOL/L 08/20/2024 5:11 PM [facility] GLUCOSE 90 70 - 99 MG/DL 08/20/2024 5:11 PM [facility] Comment: FASTING GLUCOSE 100 TO 125 MG/DL IS CONSISTENT WITH IMPAIRED FASTING GLUCOSE. FASTING GLUCOSE >125 MG/DL IS CONSISTENT WITH DIABETES. RANDOM GLUCOSE >200 MG/DL WITH HYPERGLYCEMIC SYMPTOMS IS CONSISTENT WITH DIABETES. PER ADA GUIDELINES BUN 25(H) 6 - 24 MG/DL 08/20/2024 5:11 PM [facility] CREATININE S/P/B 1.12 0.70 - 1.30 MG/DL 08/20/2024 5:11 PM [facility] CALCIUM S/P/B 9.3 8.4 - 10.5 MG/DL 08/20/2024 5:11 PM [facility] BILIRUBIN TOTAL S/P/B 0.5 0.2 - 1.0 MG/DL 08/20/2024 5:11 PM [facility] Comment: THIS ASSAY IS NOT RECOMMENDED FOR PATIENTS UNDERGOING TREATMENT WITH ELTROMBOPAG DUE TO THE POTENTIAL FOR FALSELY ELEVATED RESULTS. ALKALINE PHOSPHATASE S/P/B 117(H) 45 - 115 U/L 08/20/2024 5:11 PM CUPOLA TAPPER [facility] AST 22 15 - 37 U/L 08/20/2024 5:11 PM CUPOLA TAPPER [facility] ALT 43 16 - 63 U/L 08/20/2024 5:11 PM [facility] TOTAL PROTEIN S/P/B 8.0 6.4 - 8.2 G/DL 08/20/2024 5:11 PM [facility] ALBUMIN S/P/B 4.2 3.4 - 5.0 G/DL 08/20/2024 5:11 PM CUPOLA TAPPER [facility] ANION GAP 7.9 5.0 - 15.0 MMOL/L 08/20/2024 5:11 PM [facility] OSMOLALITY (CALC) 290 MOSM/KG 025 5:11 PM [facility] Comment:REFERENCE RANGE NOT ESTABLISHED GFR ESTIMATE 70(L) >89 ML/MIN/1. 73 M2 08/20/2024 5:11 PM [facility] GFR NOTES GFR REFERENCE S: 08/20/2024 5:11 PM [facility] Comment: THE ESTIMATED GFR IS CALCULATED USING THE 2020 CKD-EPI EQUATION. THE FOLLOWING CATEGORIES FOR GRADING RENAL FUNCTION ARE RECOMMENDED BY THE INTERNATIONAL SOCIETY OF NEPHROLOGY (KDIGO 2012 CLINICAL PRACTICE GUIDELINE). G1,NORMAL OR HIGH: >89 ml/min/1.73 m2 G2,MILDLY DECREASED: 60-89 ml/min/1.73 m2 G3A,MILDLY TO MODERATELY DECREASED: 45-59 ml/min/1.73 m2 G3B,MODERATELY TO SEVERELY DECREASED: 30-44 ml/min/1.73 m2 G4,SEVERELY DECREASED: 15-29 ml/min/1.73 m2 G5,KIDNEY FAILURE: <15 ml/min/1.73 m2 08/20/2024 4:47 PM CUPOLA TAPPER us Harley Lundberg DO LABORATORY Final Result [facility] [address] [place] [address], * CBC W/DIFF AUTOMATED (08/20/2024 4:47 PM CUPOLA TAPPER) WBC 9.76 4.00 - 10.80 x10'3/uL 08/20/2024 4:53 PM CUPOLA TAPPER [facility] RBC 5.28 4.50 - 6.10 x10'6/uL 08/20/2024 4:53 PM CUPOLA TAPPER [facility] HGB 15.3 13.0 - 18.0 G/DL 08/20/2024 4:53 PM CUPOLA TAPPER [facility] HCT 43.9 37.0 - 52.0 % 08/20/2024 4:53 PM [facility] MCV 83.1 78.0 - 100.0 FL 08/20/2024 4:53 PM [facility] MCH 29.0 27.0 - 31.0 PG 08/20/2024 4:53 PM CUPOLA TAPPER [facility] MCHC 34.9 33.0 - 36.0 G/DL 08/20/2024 4:53 PM CUPOLA TAPPER [facility] RDW 12.7 11.5 - 14.5 % 08/20/2024 4:53 PM [facility] PLT 238 150 - 350 x10'3/uL 08/20/2024 4:53 PM [facility] MPV 9.7 7.4 - 10.4 FL 08/20/2024 4:53 PM [facility] CBC COMMENT NORMAL REFERENCE RANGE NOT ESTABLISHED FOR THE PROPORTIONAL LEUKOCYTE DIFFERENTIAL. 08/20/2024 4:53 PM [facility] NEUTROPHILS % 65.9 % 08/20/2024 4:53 PM [facility] LYMPHOCYTES % 22.5 % 08/20/2024 4:53 PM [facility] MONOCYTES % 8.2 % 08/20/2024 4:53 PM [facility] EOSINOPHILS % 2.6 % 08/20/2024 4:53 PM [facility] BASOPHILS % 0.5 % 08/20/2024 4:53 PM [facility] IMMATURE GRANS % 0.3 % 08/20/19 4:53 PM CUPOLA TAPPER [facility] NRBC % 0.0 % 08/20/2024 4:53 PM CUPOLA TAPPER [facility] ABS. NEUTROPHILS 6.43 1.60 - 8.30 x10'3/uL 08/20/2024 4:53 PM CUPOLA TAPPER [facility] ABS. LYMPHOCYTES 2.20 0.80 - 4.70 x10'3/uL 08/20/2024 4:53 PM CUPOLA TAPPER [facility] ABS. MONOCYTES 0.80 0.00 - 1.50 x10'3/uL 08/20/2024 4:53 PM CUPOLA TAPPER [facility] ABS. EOSINOPHILS 0.25 0.00 - 0.40 x10'3/uL 08/20/2024 4:53 PM CUPOLA TAPPER [facility] ABS. BASOPHILS 0.05 0.00 - 0.20 x10'3/uL 08/20/2024 4:53 PM CUPOLA TAPPER [facility] ABS. IMMATURE GRANULOCYTES 0.03 0.00 - 0.03 x10'3/uL 08/20/2024 4:53 PM CUPOLA TAPPER [facility] ABS. NUCLEATED RBC'S 0.00 0.00 - 0.01 x10'3/uL 08/20/2024 4:53 PM CUPOLA TAPPER [facility] 08/20/2024 4:47 PM CUPOLA TAPPER Halrey Lundberg DO LABORATORY Final Result [facility] [address] [place] [address], * XR CHEST PA+LAT (08/20/2024 4:42 PM CUPOLA TAPPER) Anatomical Region Laterality Modality Chest Radiographic Nessa ging 08/20/2024 4:45 PM CUPOLA TAPPER Impressions 08/20/2024 4:49 PM CUPOLA TAPPER Impression: No acute findings. Referred By: Interpreted By: Pierce Turner MD, 08/20/2024 4:45 PM Narrative 08/20/2024 4:49 PM CUPOLA TAPPER [address] [place] [address] Examination: Chest 2 View History: Chest pain DATE/TIME: 08/20/2024 4:37 PM Comparison: 09/16/2023 Technique: PA and lateral views were obtained. Findings: Heart size, mediastinal contours and pulmonary vasculature are within normal limits. No pulmonary consolidation, pleural effusion or pneumothorax. No acute osseous abnormality. Procedure Note Pierce Turner MD - 08/20/[address] [place] [address] Examination: Chest 2 View History: Chest pain DATE/TIME: 08/20/2024 4:37 PM Comparison: 09/16/2023 Technique: PA and lateral views were obtained. Findings: Heart size, mediastinal contours and pulmonary vasculature arewithin normal limits. No pulmonary consolidation, pleural effusion orpneumothorax. No acute osseous abnormality. Impression: No acute findings. Referred By: Interpreted By: Pierce Turner MD, 08/20/2024 4:45 PM Harley Lundberg DO GENERAL IMAGING Final Result from Last 3 Months Insurance [facility] Care Teams Hvac Project Engineer Relationship Specialty Start Date End Date Tracee Aguilera DO [address] [place] [address] PCP - General FAMILY PRACTICE 09/16/23
--- NOTE | 2024-08-27 12:17 | ECHO_ITS ---
Patient Info Name: Jose Martin Valderrama Age: 69 years : 1955 Gender: Male Ht: 67 in Wt: 191 lbs BSA: 2.05 m2 HR: 78 bpm BP: 142 / 93 mmHg Heart Rhythm: Atrial Fibrillation Technical Quality: Good Exam Date: 08/27/2024 12:23 PM Exam Location: Echo Lab Patient Status: Outpatient Admit Date: 08/27/2024 Staff Ordering Physician: Madina Perez Finisher Denture: Anastasia Carrillo RDCS Attending Provider: Madina Perez Referring Physician: Chris CARRILLO; Exam Type: CA echo doppler color flow Study Info Indications - Afib Complete two-dimensional, color flow and Doppler transthoracic echocardiogram is performed. Summary 1. Complete two-dimensional, color flow and Doppler transthoracic echocardiogram is performed. 2. Left ventricular chamber dimension is normal. 3. Left ventricular systolic function is normal, estimated at 60-65%. 4. The left ventricular diastolic function is abnormal. 5. E/e' 10 is mildly elevated. 6. Atrial fib/flutter. 7. Left atrial chamber dimension is moderately enlarged. 8. There is moderate aortic valve sclerosis. 9. There is mild mitral valve regurgitation. 10. There is mild tricuspid valve regurgitation. 11. No pulmonary hypertension, estimated pulmonary arterial systolic pressure is 31 mmHg. Left Ventricle E/e' 10 is mildly elevated. Atrial fib/flutter. Left ventricular chamber dimension is normal. Left ventricular systolic function is normal, estimated at 60-65%. The left ventricular diastolic function is abnormal. Right Ventricle Right ventricular chamber dimension is normal. Right ventricular systolic function is normal. Left Atria Left atrial chamber dimension is moderately enlarged. Right Atria Right atrial chamber dimension is normal. Aortic Valve The aortic valve is trileaflet. There is moderate aortic valve sclerosis. There is no aortic valve stenosis. There is no aortic valve regurgitation. Pulmonic Valve There is no pulmonic regurgitation. Mitral Valve There is no mitral valve stenosis. There is mild mitral valve regurgitation. Tricuspid Valve There is mild tricuspid valve regurgitation. No pulmonary hypertension, estimated pulmonary arterial systolic pressure is 31 mmHg. Pericardium/Pleural There is no pericardial effusion. Inferior Vena Cava Normal inferior vena cava with >50% collapse upon inspiration consistent with normal right atrial pressure, 5 mmHg. Aorta The aortic root size at the sinus of Valsalva is normal. Left Ventricular Outflow Tract Name Value Normal LVOT 2D LVOT Diameter 2.3 cm LVOT Doppler LVOT Peak Gradient 1 mmHg LVOT Mean Gradient 1 mmHg LVOT VTI 13 cm LVOT VTI/AV VTI Ratio 0.5 LVOT Stroke Volume 58 ml LVOT CO 4.3 l/min LVOT CI 2.1 l/min/m2 Pulmonic Valve Name Value Normal RVOT Doppler RVOT Peak Gradient 2 mmHg PV Doppler PV Peak Gradient 5 mmHg Mitral Valve Name Value Normal MV Doppler MV Decel [place] 761 cm/s2 MV PHT 35 ms MV Area (PHT) 6.3 cm2 4.0-5.0 MV Diastolic Function MV E Peak Velocity 92 cm/s MV A Peak Velocity 1 cm/s MV E/A 145.6 MV Decel Time 121 ms MV Annular TDI MV E/e' (Septal) 12.1 <=8.0 MV E/e' (Lateral) 10.5 <=8.0 MV E/e' (Average) 11.3 Tricuspid Valve Name Value Normal TV Regurgitation Doppler TR Peak Velocity 257 cm/s TR Peak Gradient 20 mmHg Estimated PAP/RSVP RA Pressure 5 mmHg <=5 PA Systolic Pressure 31 mmHg <36 RV Systolic Pressure 31 mmHg <36 Aorta Name Value Normal Ascending Aorta Ao Root Diameter (MM) 3.7 cm Ao Root Diam Index (MM) 1.8 cm/m2 Aortic Valve Name Value Normal AV Doppler AV Peak Velocity 144 cm/s AV Peak Gradient 8 mmHg AV Mean Gradient 5 mmHg AV VTI 27 cm AV Area (Cont Eq VTI) 2.2 cm2 >=3.0 AV Area (Cont Eq Volodymyr) 1.8 cm2 AV Regurgitation 2D LVOT Area 4.3 cm2 Ventricles Name Value Normal LV Dimensions 2D/MM IVS Diastolic Thickness (2D) 1.0 cm 0.6-1.0 LVID Diastole (2D) 4.7 cm 4.2-5.8 LVIW Diastolic Thickness (2D) 1.0 cm 0.6-1.0 LVID Systole (2D) 2.9 cm 2.5-4.0 LVOT Diameter 2.3 cm LV Mass (2D Cubed) 162.70 g 88.00-224.00 LV Mass Index (2D Cubed) 79 g/m2 49-115 Relative Wall Thickness (2D) 0.42 LV Fractional Shortening/Ejection Fraction 2D/MM LV Fractional Shortening (2D) 39 % 25-43 LV EF (2D Teicholz) 69 % 52-72 LV Diastolic Volume (4C MOD) 70 ml LV EF (4C MOD) 60 % LV Diastolic Volume (2C MOD) 70 ml LV EF (2C MOD) 65 % LV Diastolic Volume (BP MOD) 70 ml 62-150 LV Diastolic Volume Index (BP MOD) 34 ml/m2 34-74 LV Systolic Volume (BP MOD) 27 ml 21-61 LV Systolic Volume Index (BP MOD) 13 ml/m2 11-31 LV EF (BP MOD) 61 % 52-72 LV Diastolic Length (4C) 7.5 cm LV Systolic Length (4C) 6.5 cm LV Stroke Volume (4C MOD) 42 ml Atria Name Value Normal LA Dimensions LA Dimension (MM) 5.4 cm 3.0-4.1 LA Volume (4C A-L) 69 ml LA Volume (BP A-L) 80 ml RA Dimensions RA Area (4C) 16.4 cm2 <=18.0 Report Signatures
== END 2024-08-27 12:09 | disposition home or self-care (01) ==
PROVIDERS: PCP Family Medicine; Visit Provider Nurse Practitioner
DX: R94.31 Abnormal electrocardiogram [ECG] [EKG] (principal); I48.91 Unspecified atrial fibrillation
CPT/HCPCS: 93306

== ENCOUNTER 2024-12-20 14:35 | Outpatient (CLI) | payer MEDICARE, SELFPAY ==
--- NOTE | ~2024-12-20 | XR_ITS ---
EXAM: XR shoulder LT min 2V, XR humerus LT, XR elbow LT 2V, XR forearm LT 2V DATE: 12/20/2024 15:15 HISTORY: Pain in left shoulder and arm. COMPARISON: None available. FINDINGS: Decreased mineralization. Well-corticated ossific fragment adjacent to the lateral epicond yle, may represent an old avulsion fracture or fractured osteophyte. No acute fracture or dislocation . No lytic or blastic lesion. Mild degenerative changes at the AC joint, glenohumeral joint, elbow, a nd wrist. Moderate degenerative change at the first CMC joint. Mild medial and lateral epicondylar an d olecranon enthesopathy No erosion or periosteal change. Small focus of subsegmental atelectasis/con solidation in the peripheral left lower lung Soft tissues within normal limits. IMPRESSION: No acute osseous finding the left shoulder, left humerus, left elbow, or left forearm. Small focus of atelectasis/consolidation in the peripheral lower left lung. Reviewed, dictated and finalized at location K. IMPRESSION: No acute osseous finding the left shoulder, left humerus, left elbow, or left f orearm. Small focus of atelectasis/consolidation in the peripheral lower left lung. IMPRESSION: No acute osseous finding the left shoulder, left humerus, left elbow, or left f orearm. Small focus of atelectasis/consolidation in the peripheral lower left lung. IMPRESSION: No acute osseous finding the left shoulder, left humerus, left elbow, or left f orearm. Small focus of atelectasis/consolidation in the peripheral lower left lung.
== END 2024-12-20 14:36 | disposition home or self-care (01) ==
LOC: GOSHIMG 14:35
PROVIDERS: PCP Family Medicine; Visit Provider Nurse Practitioner
DX: J98.11 Atelectasis (principal); J18.1 Lobar pneumonia, unspecified organism; M79.622 Pain in left upper arm; M25.512 Pain in left shoulder; M25.522 Pain in left elbow
CPT/HCPCS: 73030; 73060; 73070; 73090

== ENCOUNTER 2025-01-26 11:55 | Outpatient (CLI) | payer MEDICARE, SELFPAY ==
--- NOTE | ~2025-01-26 | MR_ITS ---
MRI of the left shoulder Technique: Axial proton-density fat-sat images, coronal proton density fat-sat and T2 fat-sat images, and sagittal T1-weighted and T2 fat-sat images were acquired. Clinical History: Pain Findings: There is moderate to advanced AC joint degenerative change with] change about the joint and small amount of fluid in the joint space. Coracoclavicular, coracoacromial, and coracohumeral ligame nts appear intact. There is complete, full-thickness tear involving the entirety of the supraspinatus tendon, with fluid -filled gap measuring approximately 3.5 x 3.5 cm in extent. Infraspinatus tendon is intact. Subscapul corazon tendon is intact. Tendon of the long head of the biceps is intact. No definite labral tear seen. Inferior glenohumeral ligament is intact. There is large glenohumeral joint effusion with fluid passi ng through the rotator cuff defect into the subacromial/subdeltoid bursa. No muscle atrophy or edema evident. No degenerative change of the glenohumeral joint. Impression: Complete, full-thickness tear involving the entire supraspinatus tendon, as detailed above. Large glenohumeral joint effusion with fluid passing through the rotator cuff defect into the subacro mial/subdeltoid bursa. Moderate to advanced AC joint degenerative change. Reviewed, dictated and finalized at [facility]. Impression: Complete, full-thickness tear involving the entire supraspinatus tendon, as det tonia above. Large glenohumeral joint effusion with fluid passing through the rotator cuff d efect into the subacromial/subdeltoid bursa. Moderate to advanced AC joint degenerative change.
== END 2025-01-26 11:56 | disposition home or self-care (01) ==
LOC: GOSHIMG 11:55
PROVIDERS: PCP Nurse Practitioner; Visit Provider Nurse Practitioner
DX: S46.812A Strain of other muscles, fascia and tendons at shoulder and upper arm level, left arm, initial encounter (principal); S43.422A Sprain of left rotator cuff capsule, initial encounter; X58.XXXA Exposure to other specified factors, initial encounter; M25.412 Effusion, left shoulder; M19.012 Primary osteoarthritis, left shoulder
CPT/HCPCS: 73221

== ENCOUNTER 2025-02-24 12:35 | Outpatient (CLI) | payer MEDICARE, SELFPAY ==
--- NOTE | ~2025-02-24 | CT_ITS ---
EXAMINATION: CT brain wo con DATE: 02/24/2025 13:07 INDICATION: Unspecified injury of head, initial encounter . TECHNIQUE: Computed tomography (CT) of the head was performed without intravenous contrast. The mA wa s adjusted according to patient size. Iterative reconstruction technique was employed. The dose-lengt h product was 674.51 mGy-cm. COMPARISON: 01/28/2018. FINDINGS: No acute intracranial hemorrhage or extra-axial fluid collection. No hydrocephalus, mass, or herniation. No acute ischemic infarct. Unremarkable dural venous sinus attenuation. No acute osseous abnormality. Moderate left maxillary and mild ethmoid sinus mucosal thickening, the remaining aerated spaces are c lear. Bilateral cerumen impaction. Mild atrophy and chronic white matter change. Atherosclerotic intracranial calcification. IMPRESSION: No acute intracranial process. If neurologic symptoms persist, or clinical suspicion of abnormality i s high, consider MR of the brain. Bilateral cerumen impaction. Reviewed, dictated and finalized at location K. IMPRESSION: No acute intracranial process. If neurologic symptoms persist, or clinical susp icion of abnormality is high, consider MR of the brain. Bilateral cerumen impaction.
== END 2025-02-24 12:36 | disposition home or self-care (01) ==
LOC: MICIMG 12:36
PROVIDERS: PCP Family Medicine; Visit Provider Nurse Practitioner
DX: S09.90XA Unspecified injury of head, initial encounter (principal); X58.XXXA Exposure to other specified factors, initial encounter; H61.23 Impacted cerumen, bilateral
CPT/HCPCS: 70450

== ENCOUNTER 2025-03-01 00:32 | Day surgery (SDC) | payer MEDICARE, SELFPAY ==
--- NOTE | 2025-02-18 08:39 | PC.NURSE ---
Report to the Outpatient Waiting Room, entrance under the green pavilion located off [facility], at time _11 AM on date __03/01/25 . Planned Procedure Time: _1:00 PM .? Time changes happen often and if your time is changed the preop area will call you the afternoon before. - You and your visitor will be asked to self-screen and do not enter if you have any COVID symptoms. Please call surgeon if you need to reschedule. - A mask is optional within the hospital at this time. Patients may have clear liquids (water, carbonated beverages, clear teas, apple juice) until 3 hours prior to surgery ( 10 AM) with a maximum of 20 ounces. - No food from midnight until time of surgery and no smoking, or chewing tobacco (or any form of nicotine). No chewing gum, candy or mints. Take only the following medications with a SIP of water on the morning of surgery: ____METOPROLOL DO NOT STOP ANY OF YOUR OTHER PRESCRIPTION MEDICATIONS PRIOR TO SURGERY EXCEPT THE FOLLOWING Hold all vitamins and supplements for 3 days per anesthesiologist. LAST DOSE 02/25/25 Medications to discontinue per physician ____HOLD ASPIRIN 7 DAYS PRE OP PER DR JOVEL LAST DOSE 02/21/25 , PT TO CALL -ELIQUIS PER DR JOVEL Please no make-up, nail khmer, hairspray, perfume, deodorant, or body powder the day of surgery.? No jewelry (including any body piercings) or valuables the day of surgery, leave them at home.? Please take a shower or bath the night before, or the morning of, surgery with an antibacterial soap.? Wear comfortable, loose fitting clothing.? Children are encouraged to wear pajamas. - Jewelry must be removed prior to entering the operating room.? Rings and piercings that are not removed may be cut off. - The hospital will not accept responsibility for valuables.? - Please leave all valuables, including medications, at home the day of surgery. If you are going home after surgery, a licensed dedicated driver must drive you home.? - NO public transportation without another adult if you receive anesthesia. - We recommend that an adult stay with you for 24 hours following discharge. - We also recommend that you do not drive, make important decision, drink alcoholic beverages, or take any drugs that were not prescribed by your health care provider for at least 24 hours after your discharge time. For Pediatric surgeries, we recommend two adults accompany the child home. Follow any additional instructions given to you from your surgeon. Telephone instructions given to __PATIENT AND WIFE and asked if any additional questions and then verbalized understanding. Patient advised to call surgeon office or pre surgery nurse liaison [phone] if any additional questions.
[2025-02-18 09:00] VITALS: BMI 28.5
[2025-03-01] VITALS (13 sets, daily range): BP systolic 111–144; BP diastolic 72–98; PULSE 76–112; RESP 12–24; TEMP 36.2–36.9; O2SAT 91–100
--- OUTSIDE RECORDS SUMMARY | 2025-03-01 00:36 | XMS_ITS | Clinical Summary ---
Author Organization [facility] Address [address] [place] [address] Care Team Providers Care Kettle Loader Name Role Phone Tracee Aguilera DO Primary Care Provider [phone] Allergies Active Allergy Reactions Criticality Noted Date [...] mouth 2 (two) times daily. 60 tablet 08/21/2024 Active Social History Tobacco Use Types Packs/Day Years Used Date Smoking Tobacco: Never Smokeless Tobacco: Never Tobacco Cessation:Counseling Given: Not Answered Alcohol Use Standard Drinks/Week Comments Never 0 (1 standard drink = 0.6 oz pur e alcohol) Sex and Gender Information Value Date Recorded Sex Assigned at Male 08/20/2024 3:45 PM INTERIOR DESIGN PROJECT MANAGER Legal Sex Male 12:45 PM INTERIOR DESIGN PROJECT MANAGER Gender Identity Not on file Sexual Orientation Not on file Last Filed Vital Signs Vital Sign Reading Time Taken Comments Blood Pressure 122/83 08/21/2024 7:15 PM INTERIOR DESIGN PROJECT MANAGER Pulse 85 08/21/2024 7:15 PM INTERIOR DESIGN PROJECT MANAGER Temperature 36.7 C (98.1 F) 08/20/2024 3:29 PM INTERIOR DESIGN PROJECT MANAGER Respiratory Rate 22 08/21/2024 7:15 PM INTERIOR DESIGN PROJECT MANAGER Oxygen Saturation 95% 08/21/2024 7:15 PM INTERIOR DESIGN PROJECT MANAGER Inhaled Oxygen Concentration - - Weight 86.6 kg (191 lb) 08/20/2024 3:29 PM INTERIOR DESIGN PROJECT MANAGER Height 170.2 cm (5' 7) 08/20/2024 3:29 PM INTERIOR DESIGN PROJECT MANAGER Body Mass Index 29.91 08/20/2024 3:29 PM INTERIOR DESIGN PROJECT MANAGER Plan of Treatment Health Maintenance Due Date Last Done Comments Colorectal Cancer Screening Colonoscopy (10 Years) 1955 Hepatitis C 1971 DTaP, Tdap and Td Vaccines (1 - Tdap) 1972 Zoster Vaccines (1 of 2) 2003 Annual Medicare Wellness Visit 2018 COVID-19 Vaccine ( season) 2024 07/09/2022, 07/17/2021, 11/01/2020, Additional history exists RSV Immunization or 60+ Years (1 - 1-dose 75+ series) 2028 Pneumococcal Vaccine: 50+ Years Completed 08/02/2021, 08/02/2020 Meningococcal B Vaccine Aged Out No l onger eligible based on patient's age to complete this topic Meningococcal Vaccine Aged Out No geo eva eligible based on patient's age to complete this topic RSV Immunizations Under 20 Months Aged Out No longer eligible based on patient's age to complete this topic Insurance [facility] Care Teams Kettle Loader Relationship Specialty Start Date End Date Tracee Aguilera DO [address] [place] [address] PCP - General FAMILY PRACTICE 09/16/23
--- OUTSIDE RECORDS SUMMARY | 2025-03-01 00:36 | XMS_ITS | Continuity of Care Document ---
Author Organization [facility] Address [address] [place] [address] Phone Care Team Providers Care Timing Adjuster Name Role Phone Benitez OD, Jesus Unavailable Unavailable Procedures Procedure Date Office/outpatient Visit, New Office/outpatient Visit, [facility] Advance Directives Directive Yes / No Effective Date File Name No Information Encounters Encounter Description Practice Location Reason(s) For Visit Diagnoses Date Provider Providers Copied on Encounter Office/outpat ient Visit, [facility], [id number] [place] [address] [address], [place], [place], [id number], tel:[phone] [facility] No Information 3-201 0 Benitez OD Jesus. [address] , [address], [place], [address], [place]. tel:[phone] Referring Provider: Júnior Mclean, [address] [place], [address]. tel:[phone] Office/outpat ient Visit, [facility], [address], [place], [place], [id number], tel:[phone] [facility] No Information 3-200 7 Benitez OD Jesus. [address] , [address], [place], [address], [place]. tel:[phone] Referring Provider: Júnior Mclean, [address] [place], [address]. tel:[phone] Family History Family Member Type Diagnosis Age At Onset No Information Payers Payer name Insurance type Covered republican ID Authoriza tion(s) No Information Social History [...]
--- NOTE | 2025-03-01 10:45 | WPDHPUPDATE1 ---
History and Physical Update Update Date/Time: 03/01/25 10:45 History and Physical has been reviewed, including an updated exam of the patient. There are NO changes in the patient's condition. Risks, benefits, and alternatives have been discussed and questions answered. Patient agrees to proceed with procedure.
[2025-03-01] MEDS: LACTATED RINGERS 1,000 ML 30 ML IV CONT ×2 (12:00→16:51)
[2025-03-01] MEDS: KETOROLAC 15 MG/ML VIAL (*BKC) IV PUSH (12:00)
[2025-03-01] MEDS: ACETAMINOPHEN 500 MG TABLET 1000 MG PO (12:00)
--- NOTE | 2025-03-01 13:35 | WPDANESEPPF ---
Anes - Initial Pre Proc Eval Procedure: Operation Date: 03/01/25 13:00 Proposed Procedures p Left Shoulder Arthroscopic Rotator Cuff Repair - Alexandro Lozano MD Date/Time: 03/01/25 13:35 Surgeon: Alexandro Lozano MD Pre Op Diagnosis: Complete Rot Cuff Tear Lt Shoulder Patient Data Age: 69 Gender: M Height: 1.7 m Weight: 83.1 kg Last Vital Signs Temp 36.2 C L 03/01/25 12:00 Pulse 76 03/01/25 12:00 Resp 14 03/01/25 12:00 BP 111/72 03/01/25 12:00 Pulse Ox 97 03/01/25 12:00 O2 Del Method Room Air 03/01/25 12:00 Allergies Allergy/AdvReac Type Severity Reaction Status Date / Time Penicillins Allergy Unknown unkown Verified 03/01/25 12:13 lisinopril AdvReac Unknown cough Verified 03/01/25 12:13 Home Medications ?Medication ?Instructions ?Recorded ?Confirmed ?Type omega-3 fatty acids 1,000 mg 1,000 mg PO DAILY 02/18/20 02/18/25 History capsule (Fish Oil Concentrate) vitamin B complex 1 tablet PO DAILY 08/02/20 03/01/25 History cholecalciferol (vitamin D3) 50 50 mcg PO DAILY 03/20/22 03/01/25 History mcg (2,000 unit) capsule multivitamin-ferrous 1 tablet PO DAILY 03/20/22 03/01/25 History fumarate-folic acid 18 mg-400 mcg tablet (Sentry) fluticasone propionate 50 2 spray intranasal DAILY #16 grams 08/11/24 02/18/25 Rx mcg/actuation nasal spray,suspension apixaban 5 mg tablet (Eliquis) 5 mg PO BID #180 tabs 01/05/25 03/01/25 Rx aspirin 81 mg tablet 81 mg PO DAILY 01/05/25 03/01/25 History blood support BYMOUTH 01/05/25 02/08/25 History trazodone 100 mg tablet 100 mg PO QHS PRN insomnia #90 tabs 01/20/25 02/18/25 Rx lidocaine 5 % topical ointment 1 applic topical TID PRN pain #30 01/27/25 02/18/25 Rx grams valacyclovir 1 gram tablet 1,000 mg PO TID #21 tabs 01/27/25 02/18/25 Rx atorvastatin 10 mg tablet 10 mg PO DAILY #100 tabs 01/31/25 03/01/25 Rx omeprazole 40 mg capsule,delayed 40 mg PO DAILY #100 caps 01/31/25 02/18/25 Rx release tamsulosin 0.4 mg capsule 0.4 mg PO DAILY #100 caps 01/31/25 02/18/25 Rx metoprolol succinate 25 mg 12.5 mg (1/2 x 25 mg) PO DAILY #45 02/23/25 Rx tablet,extended release 24 hr tabs Patient hx anesthesia problems: none Family hx anesthesia problems: none Results Review: All pre-operative results and documents have been reviewed as part of the pre-operative evaluation. [facility] Past Medical History Medical History SUZANNA (obstructive sleep apnea) BPH (benign prostatic hyperplasia) Splenic mass Gastro-esophageal reflux disease without esophagitis Diverticulitis Osteoarthritis of both knees Arthritis BMI 33.0-33.9,adult Obesity (BMI 30-39.9) Essential (primary) hypertension Mixed hyperlipidemia Cervical radiculopathy Esophageal stricture Surgical History Surgical History History of orthopedic surgery right knee arthroscopy Family History Family History Father Hypertension, Onset Age: 76 Family history of throat cancer, Onset Age: 76 Mother Family history of lung cancer, Onset Age: 62 Family history of malignant neoplasm of breast in first degree relative, Onset Age: 62 Social History Social History Smoking status: Never smoker Second hand tobacco smoke exposure: Yes Alcohol intake: never Substance use: never Substance use type: does not use Lack of Transportation: No Lack of Food: Never True Current Housing: I Have Housing Concerned About Future Housing: No Difficulty Paying Gas/Electric Bills: No Difficulty Paying for Meds: No Currently Unemployed: No Education: High School Diploma/GED Difficulty w/ Childcare or Family Care: No Living arrangements: with family Occupation/Education: retired Gender identity (if verbalized by the patient): Male Spiritual care concerns: No Anes - Eval Final PreProcedure Day of Procedure 03/01/25 13:35 Patient weight: overweight Heart: regular rate and rhythm Lungs: clear to auscultation Airway: Mallampati scale class II Neurological: alert and oriented Last oral intake: >/= 8 hours ASA classification: III Emergent: no Anesthetic plan: proceed Anesthesia type and monitoring: general ETT and standard monitoring Results Review: All pre-operative results and documents have been reviewed as part of the pre-operative evaluation. Informed Consent: The patient's anesthetic plan and its attendant risks and benefits were discussed with the patient/family/POA. Questions were solicited and answers provided to the satisfaction of the patient/family/POA.
[2025-03-01] MEDS: ceFAZolin 2 GM in SODIUM CHLORIDE 0.9% IV 50 ML 100 ML IVPB (14:10)
[2025-03-01] MEDS: BUPIVACAINE/EPINEPHRINE 0.5% 30 ML VIAL INFILTRATE (14:59)
--- NOTE | 2025-03-01 16:40 | P.OP_ITS ---
Procedure Note - Detailed Date of Procedure 03/01/25 Pre-op Diagnosis Complete Rot Cuff Tear Lt Shoulder Post-op Diagnosis Other (Left shoulder 1. Acute traumatic complete rotator cuff tear 2. Biceps tendinosis 3. Subacromial impingement) Procedure Performed 1. Arthroscopic rotator cuff repair with subacromial decompression 2. Biceps tenotomy. Surgeon Alexandro Lozano MD Anesthesia General Indications Acute traumatic tendon rupture. Severe pain. Moderate retraction on MRI without atrophy. Findings Complete rupture of the supra and infraspinatus superiorly. Moderate retraction. There was significant tendinous tissue remaining on the greater tu berosity. Anatomic reduction was possible. Two medial and 2 lateral anchors were used. Double loaded anchors with the 2 central sutures tied before bringing laterally. Subacromial decompression with the arthroscopic bur. Severe biceps tendinosis treated with tenotomy. Description of Procedure Preoperative antibiotics were given. The patient was bought brought to the operating room. A general anesthetic was administered. The patient was carefully positioned in the beach chair position. The head and neck were carefully positioned. The non operative extremity was also carefully positioned. The shoulder was prepped and draped in the usual sterile fashion. Examination was performed. No unusual findings. Standard posterior and anter ior arthroscopic portals were established. Inflow achieved with the arthroscopic pump using saline and epinephrine. The glenohumeral joint was carefully inspected. Mild glenohumeral chondromalacia. Severe tendinopathy of the biceps tendon. Tenotomy performed. Attention was turned to the subacromial space. A complete bursectomy was performed. The acromion appeared to be impinging on the rotator cuff. It was cleared of soft tissues and then the prominent anterolateral acromial bone was resected with the arthroscopic bur. The tear configuration was carefully assessed. Moderate retraction particularly more anteriorly. The posterior extent of the tear was at the infraspinatus. The tear was reducible although there was significant tissue remaining on the tuberosity. Much of this was preserved. This led to an anatomic reduction at the medial aspect of the footprint. Two all suture anchors were placed medially. Four suture limbs from each anchor. The central 2 sutures were tied. All sutures were brought laterally into 2 swivel locks. This compressed and reduced the tendon very nicely. The arthroscopic instruments were removed. The wounds were closed with 4-0 Monocryl subcuticular suture and steri strips. There were no complications. A sling was applied and the patient brought to the recovery room. Implants Arthrex FiberTak all suture anchors x2. 4.75 BioComposite SwiveLock anchors x2. Estimated Blood Loss 10 Pathology None sent Complications No immediate complications Condition Stable Disposition PACU [facility] Billing Surgery - Charge Forward: Surgery Billing
[2025-03-01] MEDS: ONDANSETRON INJ 4 MG/2 ML VIAL IV PUSH (16:44)
[2025-03-01] MEDS: fentaNYL CITRATE INJ (*CRX) 100 MCG/2 ML VIAL 25 MCG IV PUSH ×6 (16:49→17:15)
--- NOTE | 2025-03-01 17:43 | SUR.PHASEI ---
1739: RN called Dr. Lozano and asked him to please switch the prescription to [facility] in [place], [place] instead of [facility].
[2025-03-01] MEDS: oxyCODONE HCL (*CRX) 5 MG TAB IR PO (18:26)
== END 2025-03-01 18:55 | disposition home or self-care (01) ==
PROVIDERS: PCP Family Medicine; Visit Provider Orthopaedic Surgery
PROC: (CPT 29805; principal; 2025-03-01 13:00)
DX: M75.122 Complete rotator cuff tear or rupture of left shoulder, not specified as traumatic (principal); M94.212 Chondromalacia, left shoulder; M75.22 Bicipital tendinitis, left shoulder; W01.198A Fall on same level from slipping, tripping and stumbling with subsequent striking against other object, initial encounter; I10 Essential (primary) hypertension; E78.2 Mixed hyperlipidemia; G47.33 Obstructive sleep apnea (adult) (pediatric); N40.0 Benign prostatic hyperplasia without lower urinary tract symptoms; K21.9 Gastro-esophageal reflux disease without esophagitis; M17.0 Bilateral primary osteoarthritis of knee; Z79.01 Long term (current) use of anticoagulants; Z79.82 Long term (current) use of aspirin; Z98.890 Other specified postprocedural states; Z87.19 Personal history of other diseases of the digestive system; Z80.1 Family history of malignant neoplasm of trachea, bronchus and lung; Z80.3 Family history of malignant neoplasm of breast
CPT/HCPCS: 29827; 29826; J0690; A9270; J1100; J1171; J1885; J2003; J2405; J2704; J3010; J7120

== ENCOUNTER 2025-03-21 08:58 | Outpatient (CLI) | payer MEDICARE, SELFPAY ==
--- OUTSIDE RECORDS SUMMARY | 2009-12-14 05:45 | XMS_ITS | Continuity of Care Document ---
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 [address] [facility] , [address], [place], [address], [place]. tel:[phone] Referring Provider: Júnior Mclean, [address] [place], [address]. tel:[phone] Office/outpat ient Visit, [facility], [address], [place], [place], [id number], tel:[phone] [facility] No Information 3-200 7 Benitez OD Jesus. [address] [facility] [address] , [address], [place], [address], [place]. tel:[phone] Referring Provider: Júnior Mclean, [address] [place], [address]. tel:[phone] Family History Family Member Type Diagnosis Age [...]
--- OUTSIDE RECORDS SUMMARY | 2025-03-21 09:08 | XMS_ITS | Clinical Summary ---
Author Organization [facility] Address [address] [place] [address] Care Team Providers Care Floral Clerk Name Role Phone Tracee Aguilera DO Primary Care Provider [phone] Allergies Active Allergy Reactions Criticality Noted Date [...] Sex Assigned at Male 08/20/2024 3:45 PM DRIP MOLDER Legal Sex Male 12:45 PM DRIP MOLDER Gender Identity Not on file Sexual Orientation Not on file Last Filed Vital Signs Vital Sign Reading Time Taken Comments Blood Pressure 122/83 08/21/2024 7:15 PM DRIP MOLDER Pulse 85 08/21/2024 7:15 PM DRIP MOLDER Temperature 36.7 C (98.1 F) 08/20/2024 3:29 PM DRIP MOLDER Respiratory Rate 22 08/21/2024 7:15 PM DRIP MOLDER Oxygen Saturation 95% 08/21/2024 7:15 PM DRIP MOLDER Inhaled Oxygen Concentration - - Weight 86.6 kg (191 lb) 08/20/2024 3:29 PM DRIP MOLDER Height 170.2 cm (5' 7) 08/20/2024 3:29 PM DRIP MOLDER Body Mass Index 29.91 08/20/2024 3:29 PM DRIP MOLDER Plan of Treatment Health Maintenance Due Date Last Done Comments Colorectal Cancer Screening Colonoscopy (10 Years) 1955 Hepatitis C 1971 DTaP, Tdap and Td Vaccines (1 - Tdap) 1972 Zoster Vaccines (1 of 2) 2003 Annual Medicare Wellness Visit 2018 COVID-19 Vaccine ( season) 2025 07/09/2022, 07/17/2021, 11/01/2020, Additional history exists RSV [...] patient's age to complete this topic Insurance [facility] Care Teams Floral Clerk Relationship Specialty Start Date End Date Tracee Aguilera DO [address] [place] [address] PCP - General FAMILY PRACTICE 09/16/23
[2025-03-21 09:22] LABS: Hematocrit 42.9 % (37.0-46.0); Hemoglobin 14.2 g/dL (12.4-15.3); Mean Corpuscular HGB Conc 33.1 g/dL (32-36); Mean Corpuscular Hemoglobin 28.0 pg (27.0-31.0); Mean Corpuscular Volume 84.4 fL (78.0-102.0); Platelet Count Result 241 K/mm3 (150-420); Red Blood Count 5.08 M/mm3 (4.70-6.10); White Blood Count 7.6 K/mm3 (4.8-10.8)
[2025-03-21 09:38] LABS: Iron 60 ug/dL (49-181)
[2025-03-21 09:40] LABS: Alanine Aminotransferase 22 U/L (6-50); Albumin Level 4.6 g/dL (3.5-5.1); Alkaline Phosphatase 92 U/L (38-126); Anion Gap 8 mmol/L (4-12); Aspartate Amino Transferase 25 U/L (17-59); Bilirubin,Total 0.6 mg/dL (0.2-1.3); Blood Urea Nitrogen 21 mg/dL (9-20); Calcium 10.1 mg/dL (8.4-10.2); Carbon Dioxide 30 mmol/L (22-30); Chloride 104 mmol/L (98-107); Cholesterol 125 mg/dL (0-200); Estimated Glomerular Filt Rate > 60; Glucose 98 mg/dL (65-110); HDL Direct 31 mg/dL; Osmolality Calculated 297 mOsm/kg (285-295); Potassium 4.2 mmol/L (3.4-5.0); Sodium 142 mmol/L (137-145); Total Protein 7.7 g/dL (6.3-8.2); Triglycerides 112 mg/dL (<150)
[2025-03-21 09:48] LABS: Percent Iron Saturation 24 % (20-50)
[2025-03-21 10:29] LABS: Vitamin B12 620.0 pg/mL (239-931)
[2025-03-22 14:09] LABS: Folate, Hemolysate 497.0 ng/mL (Not Estab.); Folate, RBC 1107 ng/mL (>498); Hematocrit 44.9 % (37.5-51.0)
== END 2025-03-21 08:59 | disposition home or self-care (01) ==
LOC: CHSLAB 08:59
PROVIDERS: PCP Family Medicine; Visit Provider Family Medicine
DX: E78.2 Mixed hyperlipidemia (principal); R53.83 Other fatigue; I10 Essential (primary) hypertension; E78.5 Hyperlipidemia, unspecified; D64.9 Anemia, unspecified; E55.9 Vitamin D deficiency, unspecified
CPT/HCPCS: 36415; 80053; 80061; 82306; 82607; 82747; 83540; 83550; 85027

== ENCOUNTER 2025-05-17 16:28 | Emergency (ER) | payer MEDICARE, SELFPAY ==
--- OUTSIDE RECORDS SUMMARY | 2009-12-14 04:45 | XMS_ITS | Continuity of Care Document ---
Author Organization [facility] Address [address] [place] [address] Phone Care Team Providers Care Unit Operator Name Role Phone Benitez OD, Jesus Unavailable Unavailable Procedures Procedure Date Office/outpatient Visit, New Office/outpatient Visit, [facility] Advance Directives Directive Yes / No Effective Date File Name No Information Encounters Encounter Description Practice Location Reason(s) For Visit Diagnoses Date Provider Providers Copied on Encounter Office/outpat ient Visit, [facility], [id number] [place] [address] [address], [place], [place], [id number], tel:[phone] [facility] No Information 3-201 0 Benitez OD Jesus. [address] [facility] [address] , [address], [place], [address], [place]. tel:[phone] Referring Provider: Júnior Mclean, [address] [place], [address]. tel:[phone] Office/outpat ient Visit, [facility], [address], [place], [place], [id number], tel:[phone] [facility] No Information 3-200 7 Benitez OD Jesus. [address] [facility] , [address], [place], [address], [place]. tel:[phone] Referring Provider: Júnior Mclean, [address] [place], [address]. tel:[phone] Family History Family Member Type Diagnosis Age At Onset No Information Payers Payer name Insurance type Covered constitution party ID Authoriza tion(s) No Information Social History Type Description Quantity Date Captured Comments Sex Male Smoking Status No Information Chief Complaint And Reason For Visit No Information Reason For Referral Reason For Referral No Information History Of Present Illness Encounter Date Complaint History Of Prese nt Illness No Information Functional Status Date Functional Assessmen t No Information Instructions Date Instruction Additional Infor mation No Information Assessments Type Assessment Date No Information Patient Care Teams Name Effective Dates (start - stop) Status Members No Information
--- NOTE | ~2025-05-17 | XR_ITS ---
EXAMINATION: XR chest 1V portable 05/17/2025 17:12 INDICATION: Chest pain and shortness of breath PROCEDURE: 2 view chest COMPARISON: Comparison to multiple prior studies sequentially, with oldest reviewed study dated 12/12/2020. FINDINGS: The lungs are clear. The cardiomediastinal silhouette is within normal limits. There are no pleural effusions. There is no pneumothorax suspected. IMPRESSION: 1: NO ACUTE CARDIOPULMONARY DISEASE. Reviewed, dictated and finalized at location O. OR BUDGET ANALYST
--- NOTE | ~2025-05-17 | CT_ITS ---
EXAMINATION: CT brain wo con, 05/17/2025 17:20 PRESS HAND HISTORY: dizziness/ headache COMPARISON: No comparisons available. Technique: Axial images obtained of the brain without contrast. One or more of the following dose reduction techniques were used: automated exposure control, adjustment of the mA and/or kV according to patient size, use of iterative reconstruction technique. Findings: No acute infarct or parenchymal hemorrhage. No abnormal mass or mass effect. No midline shift. No extra-axial fluid collections. No hydrocephalus. Mastoid air cells unremarkable. Sinuses and orbits unremarkable. No acute fracture. No significant facial or scalp soft tissue swelling evident. No radiopaque foreign body is seen. Impression: 1.No acute intracranial abnormality. Reviewed, dictated and finalized at location P. S HAND Impression: 1.No acute intracranial abnormality.
--- NOTE | 2025-05-17 16:29 | ECG_ITS ---
Test Date: 2025-05-17 16:37:36 Measurements Intervals [place] Rate: 93 P: 0 [place]: 0 QRS: -32 QRSD: 107 T: 54 QT: 357 QTc: 445 Interpretive Statements ATRIAL FIBRILLATION LEFT AXIS DEVIATION [QRS AXIS < -30] INCOMPLETE RIGHT BUNDLE BRANCH BLOCK [90+ ms QRS DURATION, TERMINAL R IN V1/V2, 40+ ms S IN I/aVL/V4/V5/V6] No previous ECG available for comparison Electronically Signed On 05-17-2025 21:24:53 INFORMATICS NURSE SPECIALIST by Tucker Betts M.D.
[2025-05-17 16:35] VITALS: BP 145/77; PULSE 82; RESP 16; TEMP 36.8; O2SAT 96
--- OUTSIDE RECORDS SUMMARY | 2025-05-17 16:58 | XMS_ITS | Clinical Summary ---
Author Organization [facility] Address [address] [place] [address] Care Team Providers Care Dial Marker Name Role Phone Tracee Aguilera DO Primary Care Provider [phone] Allergies Active Allergy Reactions Criticality Noted Date [...] Sex Assigned at Male 08/20/2024 3:45 PM ELECTRIC TRACK SWITCH MAINTAINER Legal Sex Male 12:45 PM ELECTRIC TRACK SWITCH MAINTAINER Gender Identity Not on file Sexual Orientation Not on file Last Filed Vital Signs Vital Sign Reading Time Taken Comments Blood Pressure 122/83 08/21/2024 7:15 PM ELECTRIC TRACK SWITCH MAINTAINER Pulse 85 08/21/2024 7:15 PM ELECTRIC TRACK SWITCH MAINTAINER Temperature 36.7 C (98.1 F) 08/20/2024 3:29 PM ELECTRIC TRACK SWITCH MAINTAINER Respiratory Rate 22 08/21/2024 7:15 PM ELECTRIC TRACK SWITCH MAINTAINER Oxygen Saturation 95% 08/21/2024 7:15 PM ELECTRIC TRACK SWITCH MAINTAINER Inhaled Oxygen Concentration - - Weight 86.6 kg (191 lb) 08/20/2024 3:29 PM ELECTRIC TRACK SWITCH MAINTAINER Height 170.2 cm (5' 7) 08/20/2024 3:29 PM ELECTRIC TRACK SWITCH MAINTAINER Body Mass Index 29.91 08/20/2024 3:29 PM ELECTRIC TRACK SWITCH MAINTAINER Plan of Treatment Health Maintenance Due Date Last Done Comments Colorectal Cancer Screening Colonoscopy (10 Years) 1953 Hepatitis C 1971 DTaP, Tdap and Td Vaccines (1 - Tdap) 1972 Zoster Vaccines (1 of 2) 2003 Annual Medicare Wellness Visit 2018 COVID-19 Vaccine ( season) 2025 07/09/2022, 07/17/2021, 11/01/2020, Additional history exists Influenza Adult (#1) 2025 RSV Immunization or 60+ Years (1 - 1-dose 75+ series) 2028 Pneumococcal Vaccine: 50+ Years Completed 08/02/2021, 08/02/2020 Hepatitis A Vaccines Aged Out No long er eligible based on patient's age to complete this topic Meningococcal B Vaccine Aged Out No l onger eligible based on patient's age to complete this topic Meningococcal Vaccine Aged Out No geo eva eligible based on patient's age to complete this topic RSV Immunizations Under 20 Months Aged Out No longer eligible based on patient's age to complete this topic Insurance MEDICARE Care Teams Dial Marker Relationship Specialty Start Date End Date Tracee Aguilera DO [address] [place] [address] PCP - General FAMILY PRACTICE 09/16/23
[2025-05-17 16:59] VITALS: BP 136/85; PULSE 82; RESP 22; O2SAT 98
--- NOTE | 2025-05-17 17:02 | ED_ITS ---
HPI - General Adult General Chief complaint: Shortness of Breath/Dyspnea Stated complaint: SOB Time Seen by Provider: 05/17/25 16:42 Source: patient and family Mode of arrival: ambulatory Limitations: no limitations History of Present Illness HPI narrative: This is a 69-year-old male with history of hyperlipidemia, AFib on Eliquis who presents the ED for confusion. Patient states that for the past couple days he has been having brain fog is been having some issues with his balance. He fell a few weeks ago and hit his left head and was seen by his PCP who ordered an MRI of his brain due to this. However, over the last day he has had worsening confusion. Patient also notes some mild chest tightness that he had earlier today but does not have at this time. Denies numbness, tingling, shortness of breath, fevers, chills. No known sick contacts. Related Data Home Medications ?Medication ?Instructions ?Recorded ?Confirmed ?Last Taken ?Type omega-3 fatty acids 1,000 mg 1,000 mg PO DAILY 0 04/13/25 02/24/24 History capsule (Fish Oil Concentrate) vitamin B complex 1 tablet PO DAILY 08/02/20 1 02/22/25 History cholecalciferol (vitamin D3) 50 50 mcg PO DAILY 04/13/25 02/22/25 History mcg (2,000 unit) capsule multivitamin-ferrous 1 tablet PO DAILY 03/20/22 1 02/22/25 History fumarate-folic acid 18 mg-400 mcg tablet (Sentry) aspirin 81 mg tablet 81 mg PO DAILY 01/05/25 10/08/0702/22/25 History blood support BYMOUTH 01/05/25 04/13/25 Un known History Allergies Allergy/AdvReac Type Severity Reaction Status Date / Time Penicillins Allergy Unknown unkown Verified 04/13/25 13:31 lisinopril AdvReac Unknown cough Verified 04/13/25 13:31 Review of Systems 2 Review of Systems: Gen.: Denies fevers or chills Eyes: Denies eye pain or visual change ENT: Denies congestion Respiratory: Denies shortness of breath or cough CV: As per HPI GI: Denies abdominal pain nausea, emesis or diarrhea denies burning, urgency, frequency or hematuria Musculoskeletal: Denies back pain or muscle pain Neuro: Denies numbness, tingling, weakness or focal weakness Skin: Denies rash Except as documented, all other systems reviewed and negative FOR[facility]LY [facility], [facility] Past Medical History Medical History Rotator cuff arthropathy of left shoulder SUZANNA (obstructive sleep apnea) BPH (benign prostatic hyperplasia) Splenic mass Gastro-esophageal reflux disease without esophagitis Diverticulitis Osteoarthritis of both knees Arthritis BMI 33.0-33.9,adult Obesity (BMI 30-39.9) Essential (primary) hypertension Mixed hyperlipidemia Cervical radiculopathy Esophageal stricture Surgical History Surgical History History of orthopedic surgery right knee arthroscopy Family History Family History Father Hypertension, Onset Age: 76 Family history of throat cancer, Onset Age: 76 Mother Family history of lung cancer, Onset Age: 62 Family history of malignant neoplasm of breast in first degree relative, Onset Age: 62 Social History Social History Second hand tobacco smoke exposure: Yes Alcohol intake: never Substance use: never Substance use type: does not use Lack of Transportation: No Lack of Food: Never True Current Housing: I Have Housing Concerned About Future Housing: No Difficulty Paying Gas/Electric Bills: No Difficulty Paying for Meds: No Currently Unemployed: No Education: High School Diploma/GED Difficulty w/ Childcare or Family Care: No Living arrangements: with family Occupation/Education: retired Gender identity (if verbalized by the patient): Male Spiritual care concerns: No Exam 2 Narrative: APPEARANCE: No acute distress, nontoxic, resting in bed EYES: EOMI HEENT: Normocephalic, atraumatic, OMM RESPIRATORY: No respiratory distress Clear to auscultation bilaterally with no rhonchi wheezing or rales. CARDIOVASCULAR: Regular rate and rhythm without murmurs rubs or gallops. ABDOMINAL: Soft, nontender, nondistended, no rebound or guarding MUSCULOSKELETAl: Moves all extremities. No clubbing, cyanosis or edema. NEURO: Awake and alert. Following commands, speech normal, no focal deficits. NIHSS 0 SKIN:: Warm, dry. No rashes lesions or abrasions PSYCHIATRIC: Normal affect/mood, Course Vital Signs Vital signs: Vital Signs Temperature 98.2 F 05/17/25 16:35 Pulse Rate 82 05/17/25 16:35 Respiratory Rate 16 05/17/25 16:35 Blood Pressure 145/77 H 05/17/25 16:35 Pulse Oximetry 96 05/17/25 16:35 Temperature 98.2 F 05/17/25 16:35 Pulse Rate 72 05/17/25 19:00 Respiratory Rate 18 05/17/25 19:00 Blood Pressure 117/81 05/17/25 19:00 Pulse Oximetry 95 05/17/25 19:00 Oxygen Delivery Room Air 05/17/25 16:59 Medical Decision Making MDM Narrative Medical decision making narrative: 69-year-old male Presenting for concerns for confusion. On initial evaluation patient was in no acute distress afebrile, hemodynamic stable. Differentials include but are not limited to: CVA, TIA, ICH, meningitis, UTI, cancer, drug intoxication, hypoglycemia, electrolyte abnormality Notable exam findings: Nonfocal neuro exam. 5/5 strength to all extremities. Heart and lungs clear. Abdomen soft and nontender. Notable lab findings: CBC and CMP without significant abnormalities. UA showed microscopic hematuria Notable imaging findings: CT head acute abnormalities. Chest x-ray showed no acute process. He remained in AFib but rate controlled. There were no obvious findings that could be causing his confusion or weakness at this time. He has an MRI scheduled in a couple weeks by his PCP which I encouraged him to go to. Patient agreeable to this plan. Given strict return precautions. Medical Records Medical records reviewed: Yes I reviewed the external patient's medical records. Vital Signs Vital Signs: Vital Signs Temperature 98.2 F 05/17/25 16:35 Pulse Rate 82 05/17/25 16:35 Respiratory Rate 16 05/17/25 16:35 Blood Pressure 145/77 H 05/17/25 16:35 Pulse Oximetry 96 05/17/25 16:35 Temperature 98.2 F 05/17/25 16:35 Pulse Rate 72 05/17/25 19:00 Respiratory Rate 18 05/17/25 19:00 Blood Pressure 117/81 05/17/25 19:00 Pulse Oximetry 95 05/17/25 19:00 Oxygen Delivery Room Air 05/17/25 16:59 Lab Data Lab results reviewed: Yes I reviewed the patient's lab results. 05/17/25 17:03 05/17/25 17:03 Labs: Lab Results 05/17/25 05/17/25 Range/Units 17:03 17:37 WBC 7.8 (4.5-10.0) K/mm3 RBC 5.15 (4.6-6.20) M/mm3 Hgb 14.5 (14.0-18.0) g/dL Hct 42.8 (42.0-52.0) % MCV 83.1 (80-100) fl MCH 28.2 (26-34) pg MCHC 33.9 (32-36) g/dl RDW 13.2 (11.5-14.5) % Plt Count 205 (150-375) k/mm3 MPV 9.7 (7.4-10.4) fl Immature Gran % (Auto) 0.3 (0-0.5) % Neut % (Auto) 60.2 (45.5-73.1) % Lymph % (Auto) 26.2 (18.3-44.2) % [place] % (Auto) 10.3 H (2.6-8.5) % Eos % (Auto) 2.4 (0-4.4) % Baso % (Auto) 0.6 (0.2-1.2) % Lymph # (Auto) 2.04 (0.9-3.2) K/mm3 [place] # (Auto) 0.8 H (0.1-0.6) K/mm3 Eos # (Auto) 0.2 (0-0.3) K/mm3 Baso # (Auto) 0.1 (0.0-0.1) K/mm3 Abs Immat Gran (auto) 0.02 (0.00-0.031) K/mm3 Absolute Neuts (auto) 4.7 (1.3-6.7) K/mm3 Absolute Nucleated RBC 0.000 (0.0-0.012) K/mm3 Nucleated RBC % 0.0 (0.0-0.2) % D-Dimer 0.29 (<0.48) ug/mL Sodium 137 (137-145) mmol/L Potassium 4.0 (3.4-5.0) mmol/L Chloride 104 (98-107) mmol/L Carbon Dioxide 24 (22-30) mmol/L Anion Gap 9 (4-12) mmol/L BUN 24 H (9-20) mg/dL Creatinine 1.04 (0.7-1.3) mg/dL Estim Creat Clear Calc 54 ml/min Estimated GFR > 60 (59 - ) Glucose 108 (65-110) mg/dL Calcium 9.5 (8.4-10.2) mg/dL Total Bilirubin 0.5 (0.2-1.3) mg/dL AST 37 (17-59) U/L ALT 33 (6-50) U/L Alkaline Phosphatase 91 (38-126) U/L Troponin I < 0.012 (0.000-0.034) ng/mL Total Protein 8.1 (6.3-8.2) g/dL Albumin 4.6 (3.5-5.1) g/dL Urine Color Yellow (Yellow) Urine Appearance Clear (Clear) Urine pH 5.0 (5.0-9.0) Ur Specific Grant 1.021 (1.001-1.035) Urine Protein Negative (Negative) mg/dL Urine Glucose (UA) Negative (Negative) mg/dL Urine Ketones Negative (Negative) mg/dL Ur Blood (Man) 1+ H (Negative) Urine Nitrate Negative (Negative) Urine Bilirubin Negative (Negative) Urine Urobilinogen 0.2 (<2.0) mg/dL Leukocyte Esterase Rfl Negative (Negative) RADHA/UL Urine RBC 3-5 H (0-2) /hpf Urine WBC 0-5 (0-3) /hpf Ur Squamous Epith Cells None seen (Few) /hpf Urine Bacteria None seen /hpf Urine Casts 0-2 Imaging Data Attestation: I personally reviewed and interpreted this imaging study as follows: My impression: Chest x-ray: Normal cardiac silhouette, no consolidations, no pleural effusions, no pulmonary vascular congestion Radiologist's impression: Impressions Chest X-Ray 05/17/25 17:13 IMPRESSION: 1: NO ACUTE CARDIOPULMONARY DISEASE. Head CT 05/17/25 17:40 Impression: 1.No acute intracranial abnormality. ECG Data EKG #1: Attestation: I personally reviewed and interpreted this ECG as follows: ECG completion date: 05/17/25 ECG completion time: 16:37 Interpretation: AFib rate of 93, left axis deviation, no acute ST or T-wave changes Discharge Plan Discharge Clinical Impression: Dizziness, Atrial fibrillation Patient Disposition: Home Condition: Stable Instructions: Antibiotic Form, Dizziness (ED) Additional Instructions: There is no evidence of mass or stroke on her scans. Lab work was reassuring. EKG was reassuring. Continue to follow-up with your PCP as scheduled. Return to the ED for any new or worsening symptoms. Patient Language: Lao Prescriptions: No Action omega-3 fatty acids [Fish Oil Concentrate] 1,000 mg capsule 1,000 mg PO DAILY cholecalciferol (vitamin D3) 50 mcg (2,000 unit) capsule 50 mcg PO DAILY Sentry 18-400 mg-mcg tablet 1 tablet PO DAILY aspirin 81 mg tablet 81 mg PO DAILY blood support BYMOUTH Rx Instructions: 2 tablets by mouth daily vitamin B complex Tablet 1 tablet PO DAILY valacyclovir 1 gram tablet 1,000 mg PO TID Qty: 21 0RF Patient Comments: TAKES PRN lidocaine 5 % ointment 1 applic topical TID PRN (Reason: pain) Qty: 30 1RF oxycodone-acetaminophen 5-325 mg tablet 1 - 2 tablet PO Q6H MDD 6 tablets PRN (Reason: pain) Qty: 30 0RF fluticasone propionate 50 mcg/actuation spray,suspension 2 spray INTRANASAL DAILY Qty: 16 3RF Eliquis 5 mg tablet 5 mg PO BID Qty: 180 1RF tamsulosin 0.4 mg capsule 0.4 mg PO DAILY Qty: 100 1RF Rx Instructions: TAKE 1 CAPSULE BY MOUTH DAILY omeprazole 40 mg capsule,delayed release(DR/EC) 40 mg PO DAILY Qty: 100 1RF Rx Instructions: TAKE 1 CAPSULE BY MOUTH DAILY atorvastatin 10 mg tablet 10 mg PO DAILY Qty: 100 1RF Rx Instructions: TAKE 1 TABLET BY MOUTH DAILY metoprolol succinate 25 mg tablet extended release 24 hr 12.5 mg PO DAILY Qty: 45 1RF Patient Comments: TAKES 12.5 MG DAILY IN AM trazodone 100 mg tablet 100 mg PO QHS PRN (Reason: insomnia) Qty: 90 1RF Follow-up/Referrals: Tracee Aguilera DO [Primary Care Provider, Family Practice]
--- NOTE | 2025-05-17 17:07 | PC.NURSE ---
Pt. attempting to provide urine sample in urinal.
[2025-05-17 17:09] LABS: Hematocrit 42.8 % (42.0-52.0); Hemoglobin 14.5 g/dL (14.0-18.0); Immature Granulocyte Percent A 0.3 % (0-0.5); Lymphocytes Absolute Auto 2.04 K/mm3 (0.9-3.2); Mean Corpuscular HGB Conc 33.9 g/dl (32-36); Mean Corpuscular Hemoglobin 28.2 pg (26-34); Mean Corpuscular Volume 83.1 fl (80-100); Nucleated Red Blood Cells Absolute Auto 0.000 K/mm3 (0.0-0.012); Nucleated Red Blood Cells Perc 0.0 % (0.0-0.2); Platelet Count Result 205 k/mm3 (150-375); Red Blood Count 5.15 M/mm3 (4.6-6.20); White Blood Count 7.8 K/mm3 (4.5-10.0)
[2025-05-17 17:22] LABS: Alanine Aminotransferase 33 U/L (6-50); Albumin Level 4.6 g/dL (3.5-5.1); Alkaline Phosphatase 91 U/L (38-126); Anion Gap 9 mmol/L (4-12); Aspartate Amino Transferase 37 U/L (17-59); Bilirubin,Total 0.5 mg/dL (0.2-1.3); Blood Urea Nitrogen 24 mg/dL (9-20); Calcium 9.5 mg/dL (8.4-10.2); Carbon Dioxide 24 mmol/L (22-30); Chloride 104 mmol/L (98-107); Estimated CRCL calculation 54 ml/min; Estimated Glomerular Filt Rate > 60; Glucose 108 mg/dL (65-110); Potassium 4.0 mmol/L (3.4-5.0); Sodium 137 mmol/L (137-145); Total Protein 8.1 g/dL (6.3-8.2)
[2025-05-17 17:34] LABS: Troponin I < 0.012 ng/mL (0.000-0.034)
[2025-05-17 17:45] LABS: Add Urine Microscopic? YES; Appearance Urine Clear (Clear); Glucose Urine UA Negative (Negative); Leukocyte Esterase Ur Negative LEU/UL (Negative); Nitrate Urine Negative (Negative); Non Pathogenic Casts 0-2; Specific Grav Ur 1.021 (1.001-1.035)
[2025-05-17 19:00] VITALS: BP 117/81; PULSE 72; RESP 18; O2SAT 95
== END 2025-05-17 18:55 | disposition home or self-care (01) ==
PROVIDERS: Emergency Provider Student in an Organized Health Care Education/Training Program; PCP Family Medicine
DX: R42 Dizziness and giddiness (principal); I48.91 Unspecified atrial fibrillation; G47.30 Sleep apnea, unspecified; N40.0 Benign prostatic hyperplasia without lower urinary tract symptoms; K21.9 Gastro-esophageal reflux disease without esophagitis; M19.90 Unspecified osteoarthritis, unspecified site; I10 Essential (primary) hypertension; E78.5 Hyperlipidemia, unspecified
CPT/HCPCS: 36415; 70450; 71045; 80053; 81001; 84484; 85025; 85380; 93005; 99284